=== PATIENT | female | born 1945 | race Caucasian/White ===

== ENCOUNTER 2017-07-04 02:17 | Inpatient (IN) | payer MEDICARE ==
[2017-07-04] MEDS ORDERED: Lorazepam 2 MG/ML VIAL ONE (02:49)
[2017-07-04 03:15] LABS: Hematocrit 38.4 % (36.0-47.0); Mean Platelet Volume 6.6 fL (7.4-10.4); Red Blood Cell (RBC) Count 4.35 mill/uL (4.20-5.40); White Blood Cell (WBC) Count 10.5 thou/uL (4.8-10.8)
[2017-07-04 03:16] LABS: ALT (SGPT) 23 U/L (8-55); AST (SGOT) 24 U/L (5-34); Alkaline Phosphatase 89 U/L (40-150); Anion Gap 9 mmol/L (10-20); BUN (Urea Nitrogen) 15 mg/dL (9.8-20.1); Bilirubin, Total 0.2 mg/dL (0.2-1.2); Calc. Creatinine Clearance 0 mL/min (70-130); Calcium 8.9 mg/dL (7.8-10.44); Carbon Dioxide 32 mmol/L (23-31); Chloride 104 mmol/L (98-107); Estimated GFR-MDRD 48; Globulin 3.5 g/dL (2.4-3.5); Protein, Total 7.1 g/dL (6.0-8.3)
[2017-07-04] MEDS ORDERED: Albuterol Sulfate 2.5 mg/3 ml Neb ONE (03:20)
[2017-07-04 03:31] LABS: Band 10 % (5-11); Neutrophil 53 % (42-75)
[2017-07-04 03:49] LABS: Lactic Acid - Sepsis 0.6 mmol/L (0.5-2.2)
[2017-07-04 04:15] LABS: Troponin I 0.021 ng/mL (< 0.028)
[2017-07-04 04:20] LABS: Bilirubin Negative (Negative); Blood, Urine Trace (Negative); Glucose, Urine (Dipstick) Negative (Negative); Ketone, Urine Negative (Negative); Nitrite Negative (Negative); Protein, Urine (Dipstick) Trace mg/dL (Neg-Trace); Urobilinogen 0.2 mg/dL (0.2-1.0)
[2017-07-04 04:25] LABS: Bacteria/HPF None Seen HPF (None Seen); Hyaline Casts/LPF 4-6 HYALINE CAST LPF (0-3 Hyaline); RBC/HPF 0-3 HPF (0-3); Squamous Epithelial 0-3 HPF (0-3); WBC/HPF 0-3 HPF (0-3)
[2017-07-04 06:37] VITALS: BMI 34.4
[2017-07-04 07:00] LABS: Troponin I 0.016 ng/mL (< 0.028)
[2017-07-04] MEDS ORDERED: Sodium Chloride 0.9% 1,000 ML IV SCH (08:15)
[2017-07-04] MEDS: guaiFENesin ER 600 MG TAB PO SCH ×2 (08:41→20:31)
[2017-07-04] MEDS: Montelukast Sodium 10 mg Tablet PO SCH (08:42)
[2017-07-04] MEDS: Enoxaparin Sodium 100 MG/ML SYRINGE SC SCH ×2 (08:42→20:31)
[2017-07-04] MEDS: Furosemide 40 MG TAB PO SCH (08:42)
[2017-07-04] MEDS: Fluticasone Propionate Nasal Spray 16 gm Bottle NASAL SCH ×2 (09:23→20:31)
[2017-07-04] MEDS: Azithromycin 500 MG in Sodium Chloride 0.9% 250 ML 250 ML IVPB SCH (09:23)
--- NOTE | 2017-07-04 09:31 | RAD ---
SINGLE VIEW OF THE CHEST: COMPARISON: 08/29/16. HISTORY: Shortness of breath and wheezing. FINDINGS: Single view of the chest shows a normal sized cardiomediastinal silhouette. There is no evidence of consolidation, mass, or pleural effusion. The bones are unremarkable. IMPRESSION: No evidence of acute cardiopulmonary disease. POS: [facility]
[2017-07-04 10:04] LABS: Troponin I 0.025 ng/mL (< 0.028)
--- NOTE | 2017-07-04 10:37 | HP ---
DATE OF ADMISISON: 07/04/2017 CHIEF COMPLAINT: Exacerbation of chronic obstructive pulmonary disease with respiratory failure. HISTORY OF PRESENT ILLNESS: The patient is a 72-year-old female with long history of previous hospi talizations for exacerbation of COPD, because she continues to smoke, most recent one was in August of this year where she was treated by Dr. Caldwell. The patient had been coughing more than usual over the last few days prior to arrival at the emergency room where she was acutely dyspneic and req uired placement of BiPAP. On prior to arrival, when EMS picked her up, they began doing DuoNeb deshawn tments and put her on BiPAP, such that by the time she arrived to the emergency room, she was showin g some improvement with BiPAP and no treatments were continued. She continued to improve and finall y Dr. Santo was consulted for [facility] admission due to her need for continued treatment. She denies an y headache, nausea, vomiting, diarrhea, sore throat, or runny nose. There is a component of asthma to her COPD. She has continued to smoke. PAST MEDICAL HISTORY: As mentioned above, multiple episodes of previous hospitalizations for exacer bation of COPD and chronic bronchitis. She also has hypertension, hypothyroidism, GERD, depression, osteopenia. PAST SURGICAL HISTORY: Includes cardiac bypass, cataract in both eyes, hysterectomy, left knee repl acement, and right knee surgery. SOCIAL HISTORY: As mentioned above, continues to smoke and has even smoked with oxygen supplementat ion and has caught her oxygen on shea. FAMILY HISTORY: Noncontributory. 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 CODEINE, PENICIL ELIZA and SULFA. MEDICATIONS ON ADMISSION: Include raloxifene 60 mg daily, Zoloft 100 mg daily, Lasix 40 mg q.a.m., levothyroxine 125 mg daily, Protonix 40 mg daily, Singulair 10 mg daily, Flonase nasal spray 1 puff each nostril b.i.d.; recently Zithromax has been started as an outpatient where she was felt to have bronchitis, 250 daily; diltiazem 30 mg b.i.d., DuoNeb treatments as home nebulizer q.4 hours p.r.n. , Spiriva 18 mcg daily, and Symbicort 160/4.5 two puffs b.i.d. REVIEW OF SYSTEMS: At the time of admission, as previously mentioned was recently seen as an outpat ient and diagnosed with bronchitis and placed on oral Zithromax 250 daily in a Z-KAREEM fashion. Const itutional: Denies fever. General aches and pains. HEENT: Denies discharge, drainage or lesions. Neck: Unremarkable. Chest: With associated cough and shortness of breath. Heart: Denies palpit ations or chest pain. Gastrointestinal: No vomiting, diarrhea. Genitourinary: History of dysuria or frequency. Skin: Without rashes or lesions. Neurologic: No trouble with mentation on areas of anesthesia. Endocrine: Denies swelling or edema or changes with her energy levels. Lymphatic: Denies any edema, swelling, or bruising. Musculosk eletal: Denies any arthritis or joint swelling or pain. PHYSICAL EXAMINAITON: VITAL SIGNS: On admission, blood pressure on arrival was 147/110, pulse 99, respirations 25, pain s daisy 0, O2 sat 98 on BiPAP. GENERAL: This is an elderly female, arousable, responsive. HEENT: Normocephalic and atraumatic. Pupils equal, round, and reactive to light. Extraocular musc les are intact. TMs, nares, pharynx clear with BiPAP in place. NECK: Supple. CHEST: With diminished breath sounds and audible wheezing bilaterally. HEART: Regular rate and rhythm, tachycardic. ABDOMEN: Obese, unable to appreciate organomegaly. /BREAST: Deferred. EXTREMITIES: With 1+ lower extremity edema. SKIN: Without rashes or lesions. NEUROLOGIC: Nonfocal and intact. X-RAY FINDINGS: Chest x-ray shows hyperinflation of both lungs without acute infiltrate. ASSESSMENT: Exacerbation of chronic obstructive pulmonary disease/chronic bronchitis. PLAN: Continue BiPAP until weanable. Continue DuoNeb q.4 hours. Continue Solu-Medrol 40 mg q.6 ho urs. We will continue Zithromax IV. Dr. Serrano will be asked to see the patient who she has seen in the past. We will serially reevaluate the patient, continue her on Singulair and Spiriva. Should there be any other questions, we will address them once they arrive.
[2017-07-04] MEDS: Acetaminophen 325 MG TAB PO PRN ×2 (11:50→20:30)
[2017-07-04] MEDS ORDERED: Acetaminophen 325 MG TAB PO SCH (12:00)
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
[2017-07-04] MEDS: Mometasone/Formoterol 120 PUFF INHALER INH SCH (18:40)
[2017-07-05] MEDS: Levothyroxine Sodium 125 MCG TAB PO SCH (05:22)
[2017-07-05] MEDS: Acetaminophen 325 MG TAB PO PRN ×2 (05:31→20:02)
[2017-07-05 06:16] LABS: #Lymphocytes 1.1 thou/uL (1.20-3.40); #Neutrophils 7.9 thou/uL (1.40-6.50); %Eosinophils 0.1 % (0.0-10.0); %Monocytes 10.4 % (0.0-10.0); Hematocrit 38.2 % (36.0-47.0); Red Blood Cell (RBC) Count 4.28 mill/uL (4.20-5.40)
[2017-07-05 06:30] LABS: Anion Gap 16 mmol/L (10-20); BUN (Urea Nitrogen) 22 mg/dL (9.8-20.1); Calc. Creatinine Clearance 70 mL/min (70-130); Calcium 8.5 mg/dL (7.8-10.44); Carbon Dioxide 28 mmol/L (23-31); Chloride 103 mmol/L (98-107); Estimated GFR-MDRD 53
[2017-07-05] MEDS ORDERED: Sterile Water 10 ML ONE (08:34)
[2017-07-05] MEDS: Furosemide 40 MG TAB PO SCH (08:41)
[2017-07-05] MEDS: Montelukast Sodium 10 mg Tablet PO SCH (08:42)
[2017-07-05] MEDS: guaiFENesin ER 600 MG TAB PO SCH ×2 (08:42→20:02)
[2017-07-05] MEDS: Fluticasone Propionate Nasal Spray 16 gm Bottle NASAL SCH ×2 (08:43→20:02)
[2017-07-05] MEDS: Mometasone/Formoterol 120 PUFF INHALER INH SCH (09:09)
--- NOTE | 2017-07-05 09:25 | RAD ---
CHEST UPRIGHT PORTABLE 1 VIEW: HISTORY: A 72-year-old female with COPD exacerbation. COMPARISON: 07/04/17. FINDINGS: Increased linear and interstitial and other stable-appearing chronic lung changes noted. No conflue nt pneumonia, overt edema, or pleural effusion. Heart size is within normal limits. IMPRESSION: Stable chronic changes. No evidence of pneumonia or other acute process. POS: [facility]
[2017-07-05] MEDS: Azithromycin 500 MG in Sodium Chloride 0.9% 250 ML 250 ML IVPB SCH (10:40)
[2017-07-05] MEDS: methylPREDNISolone Sod Succ/PF 125 MG/2 ML VIAL IVP SCH ×2 (10:42→18:12)
[2017-07-05] MEDS: Enoxaparin Sodium 100 MG/ML SYRINGE SC SCH ×2 (10:45→20:15)
[2017-07-05] MEDS ORDERED: Furosemide 40 MG/4 ML VIAL SLOW IVP SCH (16:30)
--- NOTE | 2017-07-05 18:20 | PRG ---
DATE OF SERVICE:: 07/05/2017 SERVICE: Pulmonary Medicine. INTERVAL HISTORY: The patient is doing okay from a respiratory standpoint. I have respiratory ther apy give her to Ciprianoera. She has absolutely no coordination and is not getting any of this medicatio n. My suspicion is that she is not getting any Symbicort that she is supposed to be getting in the outpatient setting. This morning, she had an episode of difficulty with breathing. She has got ray e frequent nebulized medications and no dose of steroid, once again back off on these medications. She denies any current fevers, chills, nausea or vomiting. She has a cough, but is not bringing up any sputum. PHYSICAL EXAMINATION: VITAL SIGNS: Afebrile, pulse 86, blood pressure 159/88, respirations 16, saturation 91% on 2 liters nasal cannula. GENERAL: Patient is awake, alert, in no apparent distress. LUNGS: Decreased air entry. There is a prolonged expiratory phase. I hear crackles present depend ently. There is also expiratory wheezing present, more on the right. HEART: Normal rate, regular. ABDOMEN: Soft, nontender, nondistended. Bowel sounds positive. MUSCULOSKELETAL: No cyanosis or clubbing. No pitting in the bilateral lower extremities. NEUROLOGIC: Grossly nonfocal. LABORATORY DATA: WBC 10.0, hemoglobin 11.0, platelets 264,000. Basic metabolic profile is unremark able. BNP 167 and up trending. Urinalysis is unremarkable. Blood cultures negative x2. IMAGING: Chest x-ray demonstrates chronic changes. No evidence of acute cardiopulmonary abnormalit ies identified. ASSESSMENT: 1. Asthma with acute exacerbation. 2. Acute on chronic hypoxic respiratory failure. 3. Acute on chronic diastolic heart failure. PLAN: We will provide her with another dose of Lasix. We will continue frequent nebulized medicati ons. Steroids will also be continued. Pulmonary Critical Care will continue to follow while the nicholas villarreal remains in the hospital. I will add some Mucinex to see if it will help her liberate some spu analisa.
[2017-07-06] MEDS: Acetaminophen 325 MG TAB PO PRN (06:03)
[2017-07-06] MEDS: Levothyroxine Sodium 125 MCG TAB PO SCH (06:03)
[2017-07-06] MEDS ORDERED: Milk Of Magnesia 30 ML UDCUP PO SCH (07:45)
[2017-07-06] MEDS ORDERED: predniSONE 20 MG TAB PO SCH (08:00)
[2017-07-06] MEDS: predniSONE 20 MG TAB PO SCH ×2 (08:54→16:02)
[2017-07-06] MEDS: guaiFENesin ER 600 MG TAB PO SCH ×2 (08:54→20:16)
[2017-07-06] MEDS: Furosemide 40 MG TAB PO SCH (08:56)
[2017-07-06] MEDS: Montelukast Sodium 10 mg Tablet PO SCH (08:56)
[2017-07-06] MEDS: Azithromycin 500 MG in Sodium Chloride 0.9% 250 ML 250 ML IVPB SCH (09:22)
[2017-07-06] MEDS: Fluticasone Propionate Nasal Spray 16 gm Bottle NASAL SCH ×2 (09:23→20:17)
[2017-07-06] MEDS: Enoxaparin Sodium 100 MG/ML SYRINGE SC SCH ×2 (09:23→20:17)
[2017-07-06] MEDS: Docusate 100 MG CAP PO SCH ×2 (09:23→20:16)
[2017-07-06] MEDS: Lorazepam 0.5 MG TAB PO PRN ×2 (09:23→16:03)
--- NOTE | 2017-07-06 17:15 | PRG ---
DATE OF SERVICE: 07/06/2017 SERVICE: Pulmonary Medicine. INTERVAL HISTORY: The patient is doing great from a respiratory standpoint. This morning, she feel s like she is breathing comfortably. She denies any current fevers, chills or chest discomfort. Jarett powers continues to cough a little bit, but no longer feels like she has something to get out. Her cough is nonproductive. Otherwise, she seems to be improving to her usual state of health. PHYSICAL EXAMINATION: VITAL SIGNS: Afebrile, pulse 79, blood pressure 112/72, respirations 18 and saturation 94% on 2 lit ers nasal cannula. GENERAL: The patient is awake and alert, in distress. LUNGS: Decreased air entry. Dependent crackles are minimal. I do appreciate prolonged expiratory evident. There is a prolonged expiratory phase, but I do appreciate wheezing or rhonchi. HEART: Normal rate, regular. ABDOMEN: Soft, nontender, nondistended. Bowel sounds positive. MUSCULOSKELETAL: No cyanosis or clubbing. There is no pitting in the bilateral lower extremities. NEUROLOGIC: Grossly nonfocal. IMAGING DATA: Chest x-ray demonstrates stable chronic changes with no evidence of consolidating pne umonia or other acute cardiopulmonary process. There are certainly changes of hyperexpansion bilate ral lung monsivais. ASSESSMENT: 1. Asthma with acute exacerbation. 2. Acute on chronic hypoxic respiratory failure. 3. Acute on chronic diastolic heart failure. PLAN: We will continue to diurese her as tolerated to get her close to euvolemia. For the time ana ng, steroids, antibiotics and nebulized medication will be considered. If she remains stable for e next 24 hours, she can be considered for transition out of the hospital.
[2017-07-07] MEDS: Levothyroxine Sodium 125 MCG TAB PO SCH (05:58)
[2017-07-07] MEDS: Furosemide 40 MG TAB PO SCH (08:45)
[2017-07-07] MEDS: Montelukast Sodium 10 mg Tablet PO SCH (08:45)
[2017-07-07] MEDS: predniSONE 20 MG TAB PO SCH ×2 (08:45→16:06)
[2017-07-07] MEDS: guaiFENesin ER 600 MG TAB PO SCH ×2 (08:45→21:31)
[2017-07-07] MEDS: Docusate 100 MG CAP PO SCH ×2 (08:46→21:31)
[2017-07-07] MEDS: Fluticasone Propionate Nasal Spray 16 gm Bottle NASAL SCH ×2 (08:46→21:33)
[2017-07-07] MEDS: Enoxaparin Sodium 100 MG/ML SYRINGE SC SCH ×2 (08:48→21:32)
--- NOTE | 2017-07-07 08:51 | PRG ---
DATE OF SERVICE: 07/07/2017 SUBJECTIVE: The patient had a good night. She is still short of breath on oxygen. The patient den ies any more complaints. She states she does not want to go back to [facility], but she is going to go live with her aunt and her cousins. I did talk to her about hospice. She became very upset and said she does not want hospice. PHYSICAL EXAMINATION: GENERAL: She is awake, alert, and oriented to person, place, and time. She is on oxygen. VITAL SIGNS: Her blood pressure is 130/90, pulse 70, respirations 24. She is afebrile. NECK: Supple with no increased JVP or carotid bruit. Carotid had good upstroke with no thyromegaly . COR: Regular rate and rhythm. CHEST: Wheezing. ABDOMEN: Soft, nontender with normoactive bowel sounds. There is no bruit or organomegaly. EXTREMITIES: No edema or cyanosis. She had palpable pedal pulses. SKIN: There is no evidence of ulceration lesion, or rash. NEUROLOGIC: She is awake, alert, and oriented to person, place, and time. ASSESSMENT: 1. Chronic obstructive pulmonary disease exacerbation. 2. Anxiety. 3. Gastroesophageal reflux disease. 4. Depression. 5. Allergies. PLAN: The patient will be continued on the same medications for now as she does not have much of a n improvement from yesterday. We will continue the plan. The patient does already have [facility] and wants to continue with [facility] once she goes home.
[2017-07-07] MEDS: Lorazepam 0.5 MG TAB PO PRN ×2 (11:16→21:31)
[2017-07-07] MEDS: Azithromycin 500 MG in Sodium Chloride 0.9% 250 ML 250 ML IVPB SCH (11:17)
[2017-07-07] MEDS ORDERED: Furosemide 40 MG/4 ML VIAL SLOW IVP SCH (17:15)
--- NOTE | 2017-07-07 17:24 | PRG ---
DATE OF SERVICE: 07/07/2017 SERVICE: Pulmonary Medicine. INTERVAL HISTORY: The patient indicates doing fairly well today. She denies any specific fever, ch ills, nausea, vomiting or chest discomfort. She is otherwise returning to her usual state of health . She remains a little bit volume overloaded. Otherwise, there has been no interval change to her condition. She is yet to be too terribly mobile. We are going to work on getting her up today and tomorrow. PHYSICAL EXAMINATION: VITAL SIGNS: Afebrile, pulse 71, blood pressure 129/71, respirations 20, saturation 95% on 2 liters nasal cannula. GENERAL: The patient is awake and alert, no apparent distress. LUNGS: Much improved air entry. She is now wheezing. This is actually a good thing because she is moving enough air to make adventitious sounds. Dependent crackles are appreciated. No rhonchi. HEART: Normal rate, regular. ABDOMEN: Soft, nontender, nondistended. Bowel sounds positive. MUSCULOSKELETAL: No cyanosis or clubbing. No pitting in the bilateral lower extremities. NEUROLOGIC: Grossly nonfocal. ASSESSMENT: 1. Acute on chronic hypoxic respiratory failure. 2. Asthma with acute exacerbation. 3. Acute on chronic diastolic heart failure. PLAN: I will give her another dose of Lasix. We will get her into a chair 3 times a daily and ambu late her frequently. Physical therapy consultation will be placed.
[2017-07-08 04:54] LABS: BUN (Urea Nitrogen) 29 mg/dL (9.8-20.1); Calc. Creatinine Clearance 70 mL/min (70-130); Calcium 8.8 mg/dL (7.8-10.44); Estimated GFR-MDRD 53; Magnesium 2.2 mg/dL (1.6-2.6)
[2017-07-08 05:03] LABS: Anion Gap 14 mmol/L (10-20); Chloride 92 mmol/L (98-107)
[2017-07-08 05:08] LABS: Carbon Dioxide 43 mmol/L (23-31)
[2017-07-08 05:21] LABS: #Lymphocytes 2.6 thou/uL (1.20-3.40); #Monocytes 1.1 thou/uL (0.11-0.59); #Neutrophils 7.3 thou/uL (1.40-6.50); %Basophils 0.4 % (0.0-1.0); %Eosinophils 0.2 % (0.0-10.0); %Lymphocytes 23.2 % (21.0-51.0); %Monocytes 9.9 % (0.0-10.0); Hematocrit 40.4 % (36.0-47.0); Mean Platelet Volume 7.4 fL (7.4-10.4); Red Blood Cell (RBC) Count 4.56 mill/uL (4.20-5.40)
[2017-07-08] MEDS: Levothyroxine Sodium 125 MCG TAB PO SCH (06:13)
[2017-07-08] MEDS: guaiFENesin ER 600 MG TAB PO SCH ×2 (07:35→21:43)
[2017-07-08] MEDS: Montelukast Sodium 10 mg Tablet PO SCH (07:36)
[2017-07-08] MEDS: predniSONE 20 MG TAB PO SCH ×2 (07:39→16:57)
[2017-07-08] MEDS: Docusate 100 MG CAP PO SCH ×2 (07:39→21:43)
[2017-07-08] MEDS: Furosemide 40 MG TAB PO SCH (07:43)
[2017-07-08] MEDS: Fluticasone Propionate Nasal Spray 16 gm Bottle NASAL SCH ×2 (07:43→21:43)
[2017-07-08] MEDS: Enoxaparin Sodium 100 MG/ML SYRINGE SC SCH ×2 (07:46→21:44)
[2017-07-08] MEDS: Azithromycin 500 MG in Sodium Chloride 0.9% 250 ML 250 ML IVPB SCH (14:16)
[2017-07-08] MEDS: Lorazepam 0.5 MG TAB PO PRN (21:44)
[2017-07-09 04:38] LABS: #Lymphocytes 1.8 thou/uL (1.20-3.40); #Monocytes 1.2 thou/uL (0.11-0.59); #Neutrophils 8.6 thou/uL (1.40-6.50); %Basophils 0.1 % (0.0-1.0); %Eosinophils 0.2 % (0.0-10.0); %Lymphocytes 15.5 % (21.0-51.0); %Monocytes 10.5 % (0.0-10.0); Hematocrit 39.6 % (36.0-47.0); Mean Platelet Volume 7.1 fL (7.4-10.4); Red Blood Cell (RBC) Count 4.45 mill/uL (4.20-5.40); White Blood Cell (WBC) Count 11.7 thou/uL (4.8-10.8)
[2017-07-09 04:44] LABS: BUN (Urea Nitrogen) 25 mg/dL (9.8-20.1); Calc. Creatinine Clearance 76 mL/min (70-130); Estimated GFR-MDRD 61; Magnesium 2.5 mg/dL (1.6-2.6)
[2017-07-09 04:52] LABS: Anion Gap 9 mmol/L (10-20); Chloride 94 mmol/L (98-107)
[2017-07-09 05:08] LABS: Carbon Dioxide 43 mmol/L (23-31)
[2017-07-09] MEDS: Levothyroxine Sodium 125 MCG TAB PO SCH (05:43)
[2017-07-09] MEDS: Azithromycin 500 MG in Sodium Chloride 0.9% 250 ML 250 ML IVPB SCH (09:12)
[2017-07-09] MEDS: Enoxaparin Sodium 100 MG/ML SYRINGE SC SCH (09:14)
[2017-07-09] MEDS: Montelukast Sodium 10 mg Tablet PO SCH (09:14)
[2017-07-09] MEDS: predniSONE 20 MG TAB PO SCH ×2 (09:15→17:31)
[2017-07-09] MEDS: Furosemide 40 MG TAB PO SCH (09:15)
[2017-07-09] MEDS: guaiFENesin ER 600 MG TAB PO SCH (09:16)
[2017-07-09] MEDS: Fluticasone Propionate Nasal Spray 16 gm Bottle NASAL SCH (09:17)
[2017-07-09] MEDS: Docusate 100 MG CAP PO SCH (09:17)
[2017-07-09] MEDS: Lorazepam 0.5 MG TAB PO PRN (11:37)
--- NOTE | 2017-07-09 13:03 | PRG ---
DATE OF SERVICE: 07/08/2017 SERVICE: Pulmonary Medicine INTERVAL HISTORY: The patient is doing fine from a respiratory standpoint. She is requiring her neb ulized medications frequently through the day. That being said, she did not hardly need any all nigh t long. She has no specific complaints of fevers, chills, nausea, vomiting or chest discomfort. PHYSICAL EXAMINATION: VITAL SIGNS: Afebrile, pulse 79, blood pressure 111/62, respirations 17, saturation 96% on 2 liters nasal cannula. GENERAL: The patient is awake, alert, in no apparent distress. LUNGS: Decent air entry. There is a prolonged expiratory phase and rhonchi are present, but clear w ith cough. No wheezing or crackles are appreciated. HEART: Normal rate, regular. ABDOMEN: Soft, nontender, nondistended. Bowel sounds positive. MUSCULOSKELETAL: No cyanosis or clubbing. No pitting in the bilateral lower extremities. NEUROLOGIC: Grossly nonfocal. LABORATORY DATA: WBC 11.0, hemoglobin 11.8. Platelets 321,000. Bicarbonate 43. Basic metabolic pr ofile is essentially unremarkable otherwise. Magnesium is normal. Blood cultures x2 are negative. ASSESSMENT: 1. Acute on chronic hypoxic respiratory failure. 2. Asthma with acute exacerbation. 3. Acute on chronic diastolic heart failure. PLAN: We will continue to provide her with support including steroids, nebulized medications, and an tibiotics. Steroids should be able to be discontinued after total duration of 10 days. Antibiotics can be stopped after 7 days. I will continue working on mobilizing the patient. I do believe that a lot of this admission is more about the patient's weakness and debility instead of acute lung issues , particularly over the last [address]. [address], I will continue to follow while she remains in hous e, but she is in this condition tomorrow morning, from my perspective, she will be medically stable f or transition home from a purely respiratory perspective.
--- NOTE | 2017-07-09 16:27 | DIS ---
FINAL DIAGNOSES: 1. Chronic obstructive pulmonary disease. 2. Anxiety. 3. Constipation. 4. Gastroesophageal reflux disease. 5. Hypothyroidism. COMPLICATIONS: None. PROCEDURES: None. CONSULTANTS: None. HOSPITAL COURSE: This is a pleasant female, who presented from [facility] with breathing difficulty. She is known to have COPD and on oxygen. The patient had a chest x-ray, which showed no evidence of known pneumonia. Her medication was adjusted accordingly. She was placed on steroids. Her CBC was normal. She did have a spike in her white blood cell to 11.0, but that was related to the steroids. Her CMP was okay except for CO2 being elevated at 43. Her BUN and creatinine were okay. Her BNP w as slightly elevated at 167.4. The patient began breathing much better. Her IV steroids were change d to p.o. steroids. She did not want to go back to [facility], but she wanted to go home with home he alth, and she would be living with family. The patient did refuse hospice as well. The patient was also encouraged to stop smoking as she still smokes. DIET: She was discharged home on regular diet. ACTIVITIES: As tolerated by the patient. DISCHARGE MEDICATIONS: 1. Symbicort 160/4.5 one inhaler every 4 hours. 2. Flonase 1 spray each nostril every day. 3. Cardizem 30 mg t.i.d. 4. Furosemide 40 mg daily. 5. DuoNeb 3 mL every 4 hours p.r.n. 6. Levothyroxine 125 mcg every day. 7. Singulair 10 mg every day. 8. Protonix 20 mg every day. 9. Potassium 10 mEq every day. 10. Evista 60 mg every day. 11. Sertraline 100 mg every day. 12. Spiriva 1 cap daily. 13. Colace 100 mg b.i.d. 14. Medrol Dosepak. FOLLOWUP: She will follow up with Shanita in 1 week or prior to that if she has any complications. The patient verbalized understanding and all questions answered to her satisfaction. VIRY Ca dictating for Larry Santo M.D
[2017-07-09 17:35] VITALS: BP 105/58
[2017-07-09 17:36] VITALS: TEMP 97.8
--- NOTE | 2017-07-09 18:35 | PRG ---
DATE OF SERVICE: 07/09/2017 SERVICE: Pulmonary Medicine. INTERVAL HISTORY: The patient is doing okay from a respiratory standpoint. She is breathing very co mfortably. She was able to get out of bed into the bedside commode without any assistance. From her perspective, she is strong enough to go home. Her breathing is certainly back to baseline. Every w ants to walk, she gets heaviness that comes and goes on her chest. This is not actually associated w ith exertion. PHYSICAL EXAMINATION: VITAL SIGNS: Afebrile, pulse 90, blood pressure 105/58, respirations 18, saturation 92% on room air. GENERAL: Patient is awake, alert, no apparent distress. LUNGS: Decreased air entry. There is prolonged expiratory phase. I hear some expiratory wheezing a nteriorly. Posteriorly, there are minimal crackles. There are also some expiratory rhonchi that kenneth ar with cough. HEART: Normal rate, regular. ABDOMEN: Soft, nontender, nondistended. Bowel sounds positive. MUSCULOSKELETAL: No cyanosis or clubbing. No pitting in the bilateral lower extremities. NEUROLOGIC: Grossly nonfocal. LABORATORY DATA: WBC 11.7, hemoglobin 11.3, platelets 309,000. Bicarbonate 43. Basic metabolic pro file is otherwise unremarkable. Magnesium is normal. Urinalysis is unremarkable. Blood cultures x2 are negative. ASSESSMENT: 1. Acute on chronic hypoxic respiratory failure. 2. Asthma with acute exacerbation. 3. Acute on chronic diastolic heart failure. PLAN: From [facility] respiratory perspective, the patient is stable for transition out of the [facility]. She may be well served by visiting with Cardiology in the outpatient setting to make it certain that she does not have any common heart disease contributing to her presentation. Antibiotics can b e discontinued after a total duration of 7 days. Steroids can be stopped after 10 days. Pulmonary w ill continue to follow while she remains in-house. She is suggested to me that she is not really int erested in following up with me in the outpatient setting. That being said, I have asked to look me up if she would like to establish with a lung doctor.
== END 2017-07-09 17:56 | disposition home health service (06) | DRG 190 ==
LOC: ERS 02:17 → IMCU/EMU 05:58 → T4-B 16:48
PROVIDERS: ADMIT Specialist; ATTEND Specialist
PROC: 5A09357 Assistance with Respiratory Ventilation, Less than 24 Consecutive Hours, Continuous Positive Airway Pressure (ICD-10-PCS; principal; 2017-07-04)
DX: J44.1 Chronic obstructive pulmonary disease with (acute) exacerbation (principal); J96.21 Acute and chronic respiratory failure with hypoxia; I50.33 Acute on chronic diastolic (congestive) heart failure; F17.210 Nicotine dependence, cigarettes, uncomplicated; Z99.81 Dependence on supplemental oxygen; I11.0 Hypertensive heart disease with heart failure; E03.9 Hypothyroidism, unspecified; K21.9 Gastro-esophageal reflux disease without esophagitis; F32.9 Major depressive disorder, single episode, unspecified; F41.9 Anxiety disorder, unspecified; I25.10 Atherosclerotic heart disease of native coronary artery without angina pectoris; Z95.1 Presence of aortocoronary bypass graft; M85.80 Other specified disorders of bone density and structure, unspecified site; K59.00 Constipation, unspecified; Z88.1 Allergy status to other antibiotic agents; Z88.5 Allergy status to narcotic agent; Z88.0 Allergy status to penicillin; Z88.2 Allergy status to sulfonamides; Z96.652 Presence of left artificial knee joint
CPT/HCPCS: 36415; 51701; 71010; 80048; 80053; 81003; 81015; 83605; 83735; 83880; 84484; 85025; 87040; 93005; 94640; 94644; 94660; 94664; 96374; A4216; A4353; J0456; J1650; J1940; J2060; J2920; J2930; J7050; J7506; J7611; J7620

== ENCOUNTER 2017-10-06 13:33 | Inpatient (IN) | payer MEDICARE ==
[2017-10-06] MEDS ORDERED: Albuterol Sulfate 2.5 mg/0.5 ml Neb ONE ×2 (13:56)
[2017-10-06 14:00] LABS: #Basophils 0.1 thou/uL (0.0-0.2); #Eosinphils 0.2 thou/uL (0.0-0.7); #Lymphocytes 1.6 thou/uL (1.20-3.40); #Monocytes 0.9 thou/uL (0.11-0.59); %Basophils 0.8 % (0.0-1.0); %Eosinophils 1.4 % (0.0-10.0); %Lymphocytes 14.8 % (21.0-51.0); %Monocytes 8.5 % (0.0-10.0); %Neutrophils 74.5 % (42.0-75.0); Hemoglobin 11.5 g/dL (12.0-16.0); Mean Corpuscular HGB CONC 29.8 g/dL (32.0-36.0); Mean Corpuscular Hemoglobin 27.3 pg (27.0-31.0); Mean Corpuscular Volume 91.7 fl (81.0-99.0); Mean Platelet Volume 7.4 fL (7.4-10.4); Platelet Count 267 thou/uL (130-400); RBC Distribution Width 15.5 % (11.5-14.5); Red Blood Cell (RBC) Count 4.22 mill/uL (4.20-5.40); White Blood Cell (WBC) Count 10.7 thou/uL (4.8-10.8)
[2017-10-06] MEDS ORDERED: Magnesium 2 GM/NS 0.9% 100 ML 2 GM in Premix Bag 1 BAG IVPB SCH (14:00)
[2017-10-06] MEDS ORDERED: Dexamethasone 10 MG/ML VIAL ONE (14:03)
[2017-10-06] MEDS ORDERED: Magnesium Sulfate 2 GM/100 ML BAG ONE (14:03)
[2017-10-06 14:09] LABS: Base Excess (BEa) 10.4 mEq/L (0 (+/-) 2.5); CO2 Tension 98.6 mmHg (35.0-45.0); O2 Tension (PaO2) 97.2 mmHg (80.0-100.0); pH, Arterial 7.24 (7.35-7.45)
[2017-10-06 14:10] LABS: Analyzer IN Cardio ER; Calcium, Ionized 1.2 mmol/L (1.12-1.30); Puncture Site LRA
[2017-10-06 14:15] LABS: Anisocytosis SLIGHT = 6-15 cells (100X) (0-5/hpf); Hypochromia SLIGHT = 6-15 cells (100X) (0-5/hpf); MDiff Complete? YES; PLT Morphology Comment Appears Adequate; Polychromasia SLIGHT = 2-3 cells (100X) (0-2/hpf); Stomatocytes SLIGHT = 2-5 cells (100X) (0-1/hpf); Target Cells SLIGHT = 2-5 cells (100X) (0-1/hpf)
[2017-10-06 14:20] LABS: Troponin I 0.034 ng/mL (< 0.028)
--- NOTE | 2017-10-06 14:25 | RAD ---
CHEST ONE VIEW: History: Dyspnea. Shortness of breath times 2 weeks. Comparison: 07-05-17 FINDINGS: Atherosclerosis of the aorta. Upper normal cardiac silhouette. The pulmonary vessels and hilum are no rmal. Costophrenic angles are clear. Hyperinflation with stable emphysematous changes. No pneumothora x or osseous abnormalities. IMPRESSION: 1. Hyperinflation. Stable emphysematous changes. 2. Atherosclerosis. POS: [facility]
[2017-10-06 14:34] LABS: INR-International Normal Ratio 0.9; PTT 25.5 SEC (22.9-36.1); Prothrombin Time 12.5 SEC (12.0-14.7)
[2017-10-06 14:52] LABS: ALT (SGPT) 11 U/L (8-55); AST (SGOT) 16 U/L (5-34); Albumin 3.8 g/dL (3.4-4.8); Alkaline Phosphatase 83 U/L (40-150); BUN (Urea Nitrogen) 13 mg/dL (9.8-20.1); Bilirubin, Total 0.3 mg/dL (0.2-1.2); CK (CPK) 59 U/L (29-168); Calc. Creatinine Clearance 0 mL/min (70-130); Estimated GFR-MDRD 58; Globulin 3.1 g/dL (2.4-3.5); Glucose 114 mg/dL (83-110); Lipase 6 U/L (8-78); Protein, Total 6.9 g/dL (6.0-8.3)
[2017-10-06 15:02] LABS: Anion Gap 14 mmol/L (10-20); Carbon Dioxide 34 mmol/L (23-31); Chloride 100 mmol/L (98-107); Potassium 4.5 mmol/L (3.5-5.1); Sodium 143 mmol/L (136-145)
[2017-10-06 15:57] LABS: Bilirubin Negative (Negative); Blood, Urine Negative (Negative); Clarity CLEAR (Clear); Glucose, Urine (Dipstick) Negative (Negative); Leukocyte Negative (Negative); Nitrite Negative (Negative); Protein, Urine (Dipstick) Negative (Neg-Trace); Urobilinogen 0.2 mg/dL (0.2-1.0)
[2017-10-06] MEDS ORDERED: Ondansetron HCl/PF 4 MG/2 ML Vial IVP PRN (16:23)
[2017-10-06] MEDS ORDERED: Ondansetron ODT 4 MG TAB SL PRN (16:23)
[2017-10-06] MEDS ORDERED: Dextrose 5 %-0.45 % NaCl 1,000 ML IV SCH (16:30)
[2017-10-06 16:41] VITALS: BMI 37.9
[2017-10-06 17:25] LABS: Troponin I 0.031 ng/mL (< 0.028)
[2017-10-06] MEDS ORDERED: Ondansetron HCl/PF 4 MG/2 ML Vial SLOW IVP PRN (19:15)
[2017-10-06] MEDS ORDERED: Acetaminophen 325 MG TAB PO PRN (19:15)
[2017-10-06 20:26] LABS: Troponin I 0.018 ng/mL (< 0.028)
[2017-10-06] MEDS: Montelukast Sodium 10 mg Tablet PO SCH (20:48)
[2017-10-06] MEDS: Sodium Chloride 0.45% 1,000 ML IV SCH (20:50)
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
[2017-10-07 04:39] LABS: #Lymphocytes 0.5 thou/uL (1.20-3.40); #Monocytes 0.1 thou/uL (0.11-0.59); #Neutrophils 7.1 thou/uL (1.40-6.50); %Basophils 0.1 % (0.0-1.0); %Lymphocytes 6.8 % (21.0-51.0); %Neutrophils 92.1 % (42.0-75.0); Hemoglobin 10.7 g/dL (12.0-16.0); Mean Corpuscular HGB CONC 29.1 g/dL (32.0-36.0); Mean Corpuscular Hemoglobin 26.7 pg (27.0-31.0); Mean Corpuscular Volume 91.7 fl (81.0-99.0); Platelet Count 249 thou/uL (130-400); RBC Distribution Width 15.1 % (11.5-14.5); Red Blood Cell (RBC) Count 4.02 mill/uL (4.20-5.40); White Blood Cell (WBC) Count 7.7 thou/uL (4.8-10.8)
[2017-10-07 04:58] LABS: Anion Gap 11 mmol/L (10-20); BUN (Urea Nitrogen) 13 mg/dL (9.8-20.1); Calc. Creatinine Clearance 84 mL/min (70-130); Calcium 8.7 mg/dL (7.8-10.44); Carbon Dioxide 34 mmol/L (23-31); Chloride 99 mmol/L (98-107); Estimated GFR-MDRD 61; Glucose 135 mg/dL (83-110); Magnesium 2.7 mg/dL (1.6-2.6); Potassium 5.1 mmol/L (3.5-5.1); Sodium 139 mmol/L (136-145)
[2017-10-07] MEDS: Budesonide 0.5 MG/2 ML NEB NEB SCH ×2 (05:34→18:32)
[2017-10-07] MEDS: Levothyroxine Sodium 125 MCG TAB PO SCH (07:03)
[2017-10-07] MEDS: Furosemide 40 MG TAB PO SCH (08:35)
[2017-10-07] MEDS: Potassium Chloride 20 MEQ TAB PO SCH (08:35)
[2017-10-07] MEDS: Sodium Chloride 0.45% 1,000 ML IV SCH (08:38)
[2017-10-07] MEDS ORDERED: predniSONE 20 MG TAB PO SCH (10:15)
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
[2017-10-07] MEDS ORDERED: Furosemide 40 MG/4 ML VIAL SLOW IVP SCH (14:00)
[2017-10-07] MEDS: Montelukast Sodium 10 mg Tablet PO SCH (21:18)
[2017-10-07] MEDS ORDERED: diphenhydrAMINE 25 MG CAP PO PRN (22:10)
[2017-10-08 05:26] LABS: BUN (Urea Nitrogen) 24 mg/dL (9.8-20.1); Calc. Creatinine Clearance 81 mL/min (70-130); Calcium 8.6 mg/dL (7.8-10.44); Estimated GFR-MDRD 58; Glucose 102 mg/dL (83-110)
[2017-10-08 05:27] LABS: #Lymphocytes 1.3 thou/uL (1.20-3.40); #Monocytes 1.2 thou/uL (0.11-0.59); #Neutrophils 11.9 thou/uL (1.40-6.50); %Basophils 0.1 % (0.0-1.0); %Eosinophils 0.1 % (0.0-10.0); %Lymphocytes 8.9 % (21.0-51.0); %Monocytes 8.4 % (0.0-10.0); %Neutrophils 82.6 % (42.0-75.0); Hemoglobin 10.3 g/dL (12.0-16.0); Mean Corpuscular HGB CONC 29.1 g/dL (32.0-36.0); Mean Corpuscular Hemoglobin 26.5 pg (27.0-31.0); Mean Corpuscular Volume 91.2 fl (81.0-99.0); Mean Platelet Volume 7.2 fL (7.4-10.4); Platelet Count 258 thou/uL (130-400); RBC Distribution Width 15.3 % (11.5-14.5); Red Blood Cell (RBC) Count 3.88 mill/uL (4.20-5.40); White Blood Cell (WBC) Count 14.4 thou/uL (4.8-10.8)
[2017-10-08 05:34] LABS: Chloride 98 mmol/L (98-107); Potassium 4.6 mmol/L (3.5-5.1); Sodium 141 mmol/L (136-145)
[2017-10-08] MEDS: Levothyroxine Sodium 125 MCG TAB PO SCH (05:40)
[2017-10-08 06:04] LABS: Carbon Dioxide 37 mmol/L (23-31)
[2017-10-08 06:11] LABS: Anion Gap 11 mmol/L (10-20)
[2017-10-08] MEDS: Budesonide 0.5 MG/2 ML NEB NEB SCH ×2 (06:51→18:55)
--- NOTE | 2017-10-08 07:55 | RAD ---
SINGLE VIEW OF THE CHEST: COMPARISON: 10/06/17. HISTORY: COPD exacerbation. FINDINGS: A single view of the chest shows an enlarged but stable cardiomediastinal silhouette. Increased inte rstitial lung markings are seen. There is possibly a superimposed airspace opacity in the left lower lobe. No pleural effusion is seen. IMPRESSION: Possible early left lower lobe infiltrate. POS: OFF
[2017-10-08] MEDS: Potassium Chloride 20 MEQ TAB PO SCH (09:38)
[2017-10-08] MEDS: Furosemide 40 MG TAB PO SCH (09:38)
[2017-10-08] MEDS: predniSONE 20 MG TAB PO SCH (09:38)
[2017-10-08] MEDS: Amlodipine 5 MG TAB PO SCH (09:39)
--- NOTE | 2017-10-08 12:18 | PRG ---
DATE OF SERVICE: 10/08/2017 SUBJECTIVE: The patient is still short of breath. She does not feel good. She still has audible wh eezing. PHYSICAL EXAMINATION: GENERAL: Upon evaluation, she is awake, alert, and oriented. VITAL SIGNS: Her blood pressure is 150/70, pulse 84, respirations 24. She is afebrile. NECK: Supple with no increased JVP or carotid bruit. Carotid had good upstroke with no thyromegaly. COR: Regular rate and rhythm. CHEST: Scattered wheezing. ABDOMEN: Soft, nontender with normoactive bowel sounds. No bruit or organomegaly. EXTREMITIES: No edema or cyanosis. She had palpable pedal pulses. SKIN: There is no evidence of ulceration, lesion, or rash. NEUROLOGIC: She is awake, alert, and oriented to person, place, and time. ASSESSMENT: 1. Chronic obstructive pulmonary disease exacerbation. 2. Hypertension. PLAN: The patient will be started on Norvasc 5 mg every day. We will also continue IV steroids. Th e patient is not yet ready to go home. This is VIRY Ca dictating for Dr. Larry Santo.
[2017-10-08] MEDS: Montelukast Sodium 10 mg Tablet PO SCH (21:12)
[2017-10-09 06:15] LABS: #Basophils 0.1 thou/uL (0.0-0.2); #Eosinphils 0.1 thou/uL (0.0-0.7); #Lymphocytes 2.5 thou/uL (1.20-3.40); #Monocytes 1.7 thou/uL (0.11-0.59); #Neutrophils 8.6 thou/uL (1.40-6.50); %Basophils 0.4 % (0.0-1.0); %Eosinophils 0.5 % (0.0-10.0); %Lymphocytes 19.6 % (21.0-51.0); %Monocytes 12.8 % (0.0-10.0); %Neutrophils 66.7 % (42.0-75.0); ALT (SGPT) 16 U/L (8-55); AST (SGOT) 17 U/L (5-34); Albumin 3.4 g/dL (3.4-4.8); Alkaline Phosphatase 82 U/L (40-150); BUN (Urea Nitrogen) 31 mg/dL (9.8-20.1); Bilirubin, Total 0.2 mg/dL (0.2-1.2); Calc. Creatinine Clearance 76 mL/min (70-130); Calcium 8.7 mg/dL (7.8-10.44); Estimated GFR-MDRD 54; Globulin 2.7 g/dL (2.4-3.5); Glucose 77 mg/dL (83-110); Hemoglobin 10.8 g/dL (12.0-16.0); Hypochromia SLIGHT = 6-15 cells (100X) (0-5/hpf); MDiff Complete? YES; Mean Corpuscular HGB CONC 28.8 g/dL (32.0-36.0); Mean Corpuscular Hemoglobin 26.4 pg (27.0-31.0); Mean Corpuscular Volume 91.7 fl (81.0-99.0); Mean Platelet Volume 7.2 fL (7.4-10.4); Platelet Count 266 thou/uL (130-400); Protein, Total 6.1 g/dL (6.0-8.3); RBC Distribution Width 15.4 % (11.5-14.5); Red Blood Cell (RBC) Count 4.08 mill/uL (4.20-5.40); White Blood Cell (WBC) Count 12.9 thou/uL (4.8-10.8)
[2017-10-09 06:35] LABS: Chloride 98 mmol/L (98-107); Potassium 4.3 mmol/L (3.5-5.1); Sodium 143 mmol/L (136-145)
[2017-10-09] MEDS: Levothyroxine Sodium 125 MCG TAB PO SCH (06:37)
[2017-10-09] MEDS: Budesonide 0.5 MG/2 ML NEB NEB SCH (06:51)
[2017-10-09 07:47] LABS: Carbon Dioxide 35 mmol/L (23-31)
[2017-10-09 07:48] LABS: Anion Gap 14 mmol/L (10-20)
[2017-10-09] MEDS: Amlodipine 5 MG TAB PO SCH (07:56)
[2017-10-09] MEDS: Furosemide 40 MG TAB PO SCH (07:56)
[2017-10-09] MEDS: predniSONE 20 MG TAB PO SCH (07:57)
[2017-10-09] MEDS: Potassium Chloride 20 MEQ TAB PO SCH (07:57)
[2017-10-09 08:28] VITALS: TEMP 98.1
--- NOTE | 2017-10-09 09:27 | PRG ---
DATE OF SERVICE: 10/08/2017 SERVICE: Pulmonary Medicine INTERVAL HISTORY: The patient is doing great from a respiratory standpoint. She denies any current fevers, chills, nausea or vomiting. She tells me that she is essentially back to baseline as far as breathing goes. She is otherwise in her usual state of health and has no specific complaints. PHYSICAL EXAMINATION: VITAL SIGNS: Afebrile, pulse 78, blood pressure 155/72, respirations 16, saturation 99% on 3 liters nasal cannula. GENERAL: The patient is awake, alert, in no apparent distress. LUNGS: Decent air entry. There is a prolonged expiratory phase. Wheezing and rhonchi are both pres ent. Rhonchi cleared with cough. HEART: Normal rate, regular. ABDOMEN: Soft, nontender, nondistended. Bowel sounds positive. MUSCULOSKELETAL: No cyanosis or clubbing. There is no pitting in the bilateral lower extremities. NEUROLOGIC: Nonfocal. LABORATORY: WBC 14.4, hemoglobin 10.3, platelets 258,000. Basic metabolic profile is otherwise unre markable. ASSESSMENT: 1. Acute on chronic hypoxic and hypercapnic respiratory failure. 2. Chronic obstructive pulmonary disease versus asthma with acute exacerbation. 3. Acute on chronic diastolic heart failure. PLAN: We will continue supportive care including antibiotics, nebulizer medications and steroids. I have assessed the patient and will be ordering volume ventilation for nocturnal and as needed daytim e use for symptom management of chronic respiratory failure. Traditional home BiPAP is insufficient due to the severity of the patient's disease process. COPD is a major contributing factor to the say gabriel's chronic respiratory failure. She will initiate this in the outpatient setting and I will get it downloaded off of her device with follow up in 2 months in my clinic. If she is doing well in the morning, she can be considered for transition home.
--- NOTE | 2017-10-09 10:10 | RAD ---
CHEST 2 VIEWS: HISTORY: Dyspnea. COMPARISON: 10/08/17. FINDINGS: Cardiac silhouette is upper limits of normal in size. Pulmonary vasculature is unremarkable. Medias tinum is midline with aortic calcification. There is no lobar consolidation or evidence of pneumotho rax. Subtle opacity at the left base on the frontal view is less pronounced on the current exam, [facility] there is linear opacity at this level on the lateral view with the appearance of atelectasis in the left anterior lateral lung base. No pleural fluid, lobar consolidation, or pneumothorax are anselmo arent. IMPRESSION: 1. Mild linear atelectasis left lung base. 2. Atherosclerosis. POS: [facility]
[2017-10-09 11:23] VITALS: BP 168/84
--- NOTE | 2017-10-10 23:10 | DIS ---
DATE OF ADMISSION: 10/06/2017 DATE OF DISCHARGE: 10/09/2017 CHIEF COMPLAINT: At the time of admission with shortness of breath. HOSPITAL COURSE: History and physical have previously been dictated, I will resume from there with h ospital course. Patient was placed in an IMCU bed, where q.4 hour neb treatments can be performed. Serial troponins included to rule out cardiac DC. IV steroids were initiated as well as pulmonary co nsultation. Over the next 24 hours, the patient showed a significant improvement with much more aler tness, conversiveness, but still was very dyspneic anytime she would attempt to leave the bed. Then, plan of care was continued over the next [address] Cash saw the patient in consultation on 0 10/07/2017, and plan to deescalate the patient's steroids due to lack of overt infection. Antibiotics were discontinued as well. He also decided to give her one dose of Lasix, to see if some mild diure sis will help her situation. He felt that she would benefit also from a home ventilator over the nex t 24 hours. By 10/08/2017, she was still short of breath, did not feel good, and audible wheezing. She was started on Norvasc 5 for her hypertension with IV steroids were continued as well. By 10/09, she was doing much better, able to converse without dyspnea, able to move about the room, and actual ly in the bar without significant dyspnea and has had reached her baseline of COPD and was able to b e discharged home. DISCHARGE DIAGNOSES: Acute on chronic hypoxic and hypercapnic respiratory failure, chronic obstructi ve pulmonary disease with a component possibly of asthma, acute on chronic diastolic heart failure. DISCHARGE MEDICATIONS: Include pantoprazole, amlodipine 10 mg daily, Pulmicort 0.5 to be nebulized b .i.d., and prednisone diminishing scale 20 mg b.i.d. for 3 days then daily for 4 days. PLAN: She is to follow up with Dr. Santo in 1 week. Home ventilator therapy will be pursued as well as follow up with Dr. Cash and Dr. Payton for further management. She is discharged in stable condition. The time required to review her medical records, examined her thoroughly prior to discharge counseled her completely, and answered all her questions, then proceed to dictation and writing new prescripti ons was 40 minutes.
--- NOTE | 2017-10-14 18:26 | PQF ---
VERONICA MEJIAS MICHAEL E MD [id number] CLINICAL DOCUMENTATION CLARIFICATION FORM: POST DISCHARGE Addendum to original discharge summary date: ____ Late entry note date: __ DATE: 10/14/17 ATTN: Dr. Santo Please exercise your independent, professional judgment in responding to the clarification form. Clinical indicators are provided on the bottom of this form for your review Diagnosis: Acute respiratory failure Present on Admission (POA): [ x] Yes [ ] No [ ] Unable to determine Coding guidelines require hospitals to identify whether a diagnosis was present on admission (POA) or not. To accurately assign the appropriate POA indicator, this information must be clearly documented within the medical record. CLINICAL INDICATORS - SIGNS / SYMPTOMS / LABS Decreased oxygen saturation, Cyanosis/Hypoxia Labored or rapid respirations (use of accessory muscles or inability to speak full sentences, air hunger) Pulmonary vascular congestion RISK FACTORS: History of home O2 use COPD exacerbation / Asthma CHF exacerbation Tobacco abuse TREATMENT: Oxygen, Nebs, Lasix MTDD
--- NOTE | 2017-10-17 17:46 | EKG ---
Test Reason : SOB Blood Pressure : / mmHG Vent. Rate : 086 BPM Atrial Rate : 086 BPM P-R Int : 138 ms QRS Dur : 096 ms QT Int : 404 ms P-R-T Axes : 057 -72 082 degrees QTc Int : 483 ms Sinus rhythm with Premature atrial complexes Left axis deviation Prolonged QT Abnormal ECG Confirmed by VIANEY FORTE, GRISELDA ([id number]), news assignment editor COMPA HERNANDEZ ([id number]) on 10/17/2017 5:45:49 PM Referred By: Confirmed By:GRISELDA WINTERS MD
== END 2017-10-09 14:54 | disposition home health service (06) | DRG 190 ==
LOC: ERS 13:33 → IMCU/EMU 14:42 → T4-B 10-07 16:35
PROVIDERS: ADMIT Specialist; ATTEND Specialist
PROC: 5A09357 Assistance with Respiratory Ventilation, Less than 24 Consecutive Hours, Continuous Positive Airway Pressure (ICD-10-PCS; principal; 2017-10-06)
DX: J44.1 Chronic obstructive pulmonary disease with (acute) exacerbation (principal); J96.21 Acute and chronic respiratory failure with hypoxia; I50.33 Acute on chronic diastolic (congestive) heart failure; E87.2 Acidosis; I24.8 Other forms of acute ischemic heart disease; E03.9 Hypothyroidism, unspecified; F17.210 Nicotine dependence, cigarettes, uncomplicated; I25.10 Atherosclerotic heart disease of native coronary artery without angina pectoris; K21.9 Gastro-esophageal reflux disease without esophagitis; F32.9 Major depressive disorder, single episode, unspecified; Z95.1 Presence of aortocoronary bypass graft; I11.0 Hypertensive heart disease with heart failure
CPT/HCPCS: 36415; 51701; 71045; 71046; 80048; 80053; 81003; 82550; 82553; 82805; 83605; 83690; 83735; 83880; 84484; 85025; 85610; 85730; 87040; 87804; 93005; 94644; 94660; 96365; 96367; 96375; A4216; A4353; G8978-GP-CI; G8979-GP-CI; J1100; J1956; J3475; J7050; J7506; J7611; J7620; J7626

== ENCOUNTER 2017-10-16 11:43 | Inpatient (IN) | payer MEDICARE, OTHER ==
[2017-10-16 12:24] LABS: Hemoglobin 12.2 g/dL (12.0-16.0); Mean Corpuscular HGB CONC 29.3 g/dL (32.0-36.0); Mean Corpuscular Hemoglobin 26.9 pg (27.0-31.0); Mean Corpuscular Volume 91.6 fl (81.0-99.0); Mean Platelet Volume 7.7 fL (7.4-10.4); Platelet Count 268 thou/uL (130-400); RBC Distribution Width 15.2 % (11.5-14.5); Red Blood Cell (RBC) Count 4.54 mill/uL (4.20-5.40); White Blood Cell (WBC) Count 19.5 thou/uL (4.8-10.8)
[2017-10-16 12:39] LABS: ALT (SGPT) 21 U/L (8-55); AST (SGOT) 26 U/L (5-34); Albumin 3.9 g/dL (3.4-4.8); Alkaline Phosphatase 84 U/L (40-150); Anion Gap 11 mmol/L (10-20); BUN (Urea Nitrogen) 26 mg/dL (9.8-20.1); Bilirubin, Total 0.4 mg/dL (0.2-1.2); Calc. Creatinine Clearance 0 mL/min (70-130); Carbon Dioxide 33 mmol/L (23-31); Chloride 99 mmol/L (98-107); Estimated GFR-MDRD 36; Globulin 3.2 g/dL (2.4-3.5); Glucose 159 mg/dL (83-110); Potassium 4.3 mmol/L (3.5-5.1); Protein, Total 7.1 g/dL (6.0-8.3); Sodium 139 mmol/L (136-145)
[2017-10-16 12:42] LABS: Band 6 % (5-11); Lymphocytes 4 % (21-51); MDiff Complete? YES; Metamyelocyte 5 % (0-0); Monocytes 4 % (0-10); Neutrophil 76 % (42-75); Ovalocytes SLIGHT = 2-5 cells (100X) (0-1/hpf); Reactive Lymphocytes 5 % (0-10)
[2017-10-16 12:43] LABS: CKMB 2.2 ng/mL (0-6.6); Troponin I 0.052 ng/mL (< 0.028)
[2017-10-16 13:02] LABS: CO2 Tension 93.9 mmHg (35.0-45.0); O2 Tension (PaO2) 55.4 mmHg (80.0-100.0); pH, Arterial 7.21 (7.35-7.45)
[2017-10-16 13:03] LABS: Actual Bicarbonate (HCO3a) 36.3 mEq/L (22-26); Base Excess (BEa) 5.6 mEq/L (0 (+/-) 2.5); Hematocrit-ABG 44.8 % (36.0-47.0); Hemoglobin (Hb) 11.8 g/dL (12.0-16.0)
[2017-10-16 13:04] LABS: ALV-art Gradient 39.625 (0-20); Analyzer IN Cardio ER; Calcium, Ionized 1.1 mmol/L (1.12-1.30); Puncture Site RR
--- NOTE | 2017-10-16 13:06 | RAD ---
[facility] UPRIGHT FRONTAL RADIOGRAPH CHEST: 10/16/2017 HISTORY: Shortness of breath. COMPARISON: 10/08/2017 FINDINGS: Heart and mediastinal contours are stable. There is mild increased linear interstitial density, stab le as well. There is no pneumothorax, pleural fluid, focal consolidation, or alveolar edema. IMPRESSION: No acute findings. POS: [facility]
[2017-10-16] MEDS ORDERED: Albuterol Sulfate 2.5 mg/3 ml Neb ONE (13:07)
[2017-10-16] MEDS ORDERED: CCU Electrolyte Replacement 1 EACH FS ONE (14:29)
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
[2017-10-16] MEDS ORDERED: Potassium Chloride 40 MEQ in Premix Bag 1 BAG IVPB PRN (15:41)
[2017-10-16] MEDS ORDERED: Potassium Phosphate 15 MMOL in Sodium Chloride 0.9% 250 ML 250 ML IV PRN (15:41)
[2017-10-16] MEDS ORDERED: Potassium Chloride 20 MEQ TAB PO PRN (15:41)
[2017-10-16] MEDS ORDERED: Magnesium Oxide 400 MG TAB PO PRN ×2 (15:41)
[2017-10-16] MEDS ORDERED: Potassium Phosphate 9 MMOL in Sodium Chloride 0.9% 100 ML IVPB PRN (15:41)
[2017-10-16] MEDS ORDERED: CCU ELECTROLYTE REPLACEMENT PROTOCOL FS PRN (15:41)
[2017-10-16] MEDS ORDERED: Potassium Phosphate 12 MMOL in Sodium Chloride 0.9% 250 ML 250 ML IV PRN (15:41)
[2017-10-16] MEDS ORDERED: Potassium Chloride 40 MEQ in Sodium Chloride 0.9% 250 ML 250 ML IVPB PRN (15:41)
[2017-10-16] MEDS ORDERED: Magnesium 2 GM/NS 0.9% 100 ML 2 GM in Premix Bag 1 BAG IVPB PRN (15:41)
[2017-10-16] MEDS: Sodium Chloride 0.45% 1,000 ML IV SCH (16:10)
[2017-10-16 16:14] LABS: Troponin I 0.062 ng/mL (< 0.028)
[2017-10-16] MEDS ORDERED: FLU VACC TS2017-18 (>65YR) 0.5 ML SYRINGE IM ONE (17:45)
--- NOTE | 2017-10-16 18:19 | HP ---
CHIEF COMPLAINT: A 4-day history of worsening shortness of breath. HISTORY OF PRESENT ILLNESS: This is a 72-year-old female with a past medical history significant for chronic respiratory failure, COPD, hypertension, hypothyroidism, as well as coronary artery disease, who presents to the hospital due to approximate 4-day history of worsening shortness of breath. The patient states that she was in her normal state up until about 3-4 days ago when she began having sh ortness of breath that began to worsen at rest. She states that she has baseline shortness of breath , but this has become considerably worse, so she decided to come to the hospital for further evaluati on and management. Along with that, she complains of an associated cough, but denies any fevers, chi lls or night sweats. Of note, the patient has been recently admitted in the hospital approximately a week and a half ago for similar symptoms. While here in the ER, she was found to have sats in the 7 0s on her 3 liters of nasal cannula prior to coming here. Because of this, the patient was placed on BiPAP. ABG was drawn at that time, which showed that she was in respiratory acidosis. Pulmonology was consulted during that time as well. PAST MEDICAL HISTORY: Please see HPI. PAST SURGICAL HISTORY: Includes coronary bypass surgery, left knee surgery and right knee surgery. SOCIAL HISTORY: The patient currently still smokes on and off. Denies any recreational drug use or alcoholic use. REVIEW OF SYSTEMS: Unable to obtain due to the patient's inability to completely incorporate due to distress from shortness of breath and placed on BiPAP. FAMILY HISTORY: Significant for hypertension as well as heart disease. ALLERGIES: BACTRIM, CODEINE, PENICILLIN, SULFA, and BACLOFEN. HOME MEDICATIONS: Include pantoprazole, Norvasc, Pulmicort and prednisone. Please see full medicati on list for full medications. PHYSICAL EXAMINATION: VITAL SIGNS: Blood pressure is 155/69, pulse is 100, respiratory rate was 20, temperature was 98.5 a nd patient was satting 94% oxygen on 40% FiO2. GENERAL: The patient appeared to be in mild distress, but significantly better from when she initial ly came in. Awake and oriented x3. HEAD: Normocephalic and atraumatic. EYES: Pupils are round and reactive to light. Extraocular muscles were intact. Conjunctivae is pin k. Sclerae nonicteric. ENT: BiPAP mask was on at this time of the examination. NECK: Soft and supple. No JVD, carotid bruits or lymphadenopathy. CARDIOVASCULAR: Regular rate and rhythm. S1 and S2 sounds are heard. No S3, no S4. RESPIRATORY: Decreased breath sounds bilaterally. I could not appreciate any wheezing, but patient denied having good air entry. No accessory muscle use, however. ABDOMEN: Positive bowel sounds. Soft, nontender and nondistended. EXTREMITIES: Pulses were 2+ both dorsalis and radial pulse. No pitting edema could be appreciated. NEUROLOGIC: Cranial nerves II through XII are grossly intact. Moving all 4 extremities voluntarily. Sensation was intact as well. LABORATORY AND IMAGING DATA: CBC: White blood cell count 19.5, hemoglobin 12.2, hematocrit was 41.6 and platelet count was 268. Sodium 139, potassium 4.3, chloride is 99, bicarbonate is 33, BUN was 2 6, creatinine was 1.42 and glucose is 159. Troponin was 0.52 and 0.062. BNP was 168.9. Chest x-ray was negative. The patient was positive for the flu. ASSESSMENT: 1. Acute on chronic respiratory failure secondary to chronic obstructive pulmonary disease exacerbat ion, possibly secondary to positive influenza. 2. Sepsis secondary to influenza. 3. Hypertension. 4. Coronary artery disease. 5. Hypothyroidism. 6. Acute kidney injury, likely secondary to sepsis. PLAN: The patient will be admitted to the critical care unit. We will keep the patient on BiPAP for this time being. Pulmonary has already been consulted. We will defer BiPAP management to Pulmonary Critical Care. We will start the patient on Solu-Medrol IV, as well as nebulizer treatments. She w ill also be started on Tamiflu as well. We will start her on Tamiflu as well as Levaquin. We will m onitor labs in a.m. including creatinine. We will also risk reduction counselor the patient on the importance of toba channel account manager cessation. Otherwise, we will resume home medication at the medicine reconciliation.
[2017-10-16] MEDS: Budesonide 0.5 MG/2 ML NEB INH SCH (18:36)
[2017-10-16] MEDS: Arformoterol 15 MCG/2 ML NEB NEB SCH (18:36)
[2017-10-16 18:37] LABS: Troponin I 0.044 ng/mL (< 0.028)
[2017-10-16] MEDS: Oseltamivir 75 MG CAP PO SCH (21:32)
[2017-10-16] MEDS: Pantoprazole 40 MG VIAL IVP SCH (21:34)
[2017-10-17] MEDS: Sodium Chloride 0.45% 1,000 ML IV SCH ×2 (03:36→17:51)
[2017-10-17 04:32] LABS: #Lymphocytes 0.4 thou/uL (1.20-3.40); #Monocytes 0.5 thou/uL (0.11-0.59); #Neutrophils 10.9 thou/uL (1.40-6.50); %Eosinophils 0.2 % (0.0-10.0); %Lymphocytes 3.7 % (21.0-51.0); %Monocytes 3.9 % (0.0-10.0); %Neutrophils 92.2 % (42.0-75.0); Hemoglobin 11.7 g/dL (12.0-16.0); Mean Corpuscular HGB CONC 29.2 g/dL (32.0-36.0); Mean Corpuscular Hemoglobin 27.1 pg (27.0-31.0); Mean Corpuscular Volume 92.9 fl (81.0-99.0); Mean Platelet Volume 7.8 fL (7.4-10.4); Platelet Count 215 thou/uL (130-400); RBC Distribution Width 15.1 % (11.5-14.5); Red Blood Cell (RBC) Count 4.31 mill/uL (4.20-5.40); White Blood Cell (WBC) Count 11.8 thou/uL (4.8-10.8)
[2017-10-17 04:33] LABS: Anion Gap 13 mmol/L (10-20); BUN (Urea Nitrogen) 29 mg/dL (9.8-20.1); Calc. Creatinine Clearance 58 mL/min (70-130); Calcium 8.8 mg/dL (7.8-10.44); Carbon Dioxide 33 mmol/L (23-31); Chloride 99 mmol/L (98-107); Estimated GFR-MDRD 42; Glucose 131 mg/dL (83-110); Potassium 4.7 mmol/L (3.5-5.1); Sodium 140 mmol/L (136-145)
[2017-10-17] MEDS: Budesonide 0.5 MG/2 ML NEB INH SCH ×2 (06:43→18:47)
[2017-10-17] MEDS: Arformoterol 15 MCG/2 ML NEB NEB SCH ×2 (06:44→18:48)
--- NOTE | 2017-10-17 08:26 | PRG ---
DATE OF SERVICE: 10/17/2017 This is a 35 minutes critical care time. SUBJECTIVE: The patient appears quite anxious today. She remains on noninvasive mechanical ventilat ion. PHYSICAL EXAMINATION: VITAL SIGNS: Her temperature is 99.0 with a T-max of 99.1, pulse 78, blood pressure 136/50, 24-hour intake is 992, output 805. GENERAL: She appears to be in mild respiratory distress on the BiPAP. HEENT: Pupils react, sclera anicteric. Oropharynx is clear. NECK: No JVD, no bruits. CARDIAC: S1 and S2 regular, without audible murmur. LUNGS: She has diffuse bilateral end expiratory wheezing. ABDOMEN: Soft, nontender. EXTREMITIES: No clubbing, cyanosis, or edema. SKIN: Shows stasis changes over the distal lower extremities. LABORATORY DATA: White blood cell count 11.8, hemoglobin 11.7, hematocrit 40, platelet count 215. S odium 140, potassium 4.7, chloride 99, CO2 33, BUN 29, creatinine 1.2, glucose 131. Troponin 0.04. ASSESSMENT: 1. Chronic obstructive pulmonary disease with exacerbation. 2. Influenza type B. 3. Acute respiratory failure requiring noninvasive mechanical ventilation. 4. Tobacco abuse. PLAN: 1. The patient stated that she was anxious and has requested anxiety medicine. I will write for ray Fowler. 2. She has requested that she not be resuscitated with intubation or CPR in the event of cardiopulmo nary arrest. 3. We will continue steroids, Tamiflu, antibiotics and aggressive breathing treatments. Prognosis i s extremely guarded at this time.
[2017-10-17] MEDS: Lorazepam 2 MG/ML VIAL SLOW IVP PRN ×3 (09:29→23:37)
[2017-10-17] MEDS: Oseltamivir 75 MG CAP PO SCH ×2 (09:29→21:18)
--- NOTE | 2017-10-17 10:35 | PDOC.PN ---
- Subjective Encounter Start Date: 10/17/17 Encounter Start Time: 08:45 states that she is anxious but otherwise shortness a little better. no acute night events - Objective Resuscitation Status: Resuscitation Status DNR:Do Not Resuscitate Vital Signs & Weight: Vital Signs (12 hours) Temp Pulse Resp Pulse Ox 10/17/17 07:33 99 F 81 19 92 L 10/17/17 06:47 81 93 L 10/17/17 06:44 77 17 94 L 10/17/17 06:43 77 17 94 L 10/17/17 06:41 77 17 94 L 10/17/17 04:00 99 F 10/17/17 03:56 79 10/17/17 03:53 77 20 100 10/17/17 00:04 72 16 100 10/17/17 00:00 99.1 F Most Recent Monitor Data Heart Rate from ECG 78 NIBP 136/50 NIBP BP-Mean 98 Respiration from ECG 18 SpO2 93 I&O: 10/16/17 10/17/17 10/18/17 06:59 06:59 06:59 Intake Total 992 Output Total 805 Balance 187 Result Diagrams: 10/17/17 03:30 10/17/17 03:30 Phys Exam - Physical Examination Constitutional: NAD HEENT: PERRLA, moist MMs, sclera anicteric Neck: no nodes, no JVD, supple Respiratory: no rales, no rhonchi decreased BS b/l Cardiovascular: RRR, no significant murmur Gastrointestinal: soft, non-tender Musculoskeletal: no edema, pulses present Neurological: moves all 4 limbs Dx/Plan (1) Acute and chronic respiratory failure Code(s): J96.20 - ACUTE AND CHR RESP FAILURE, UNSP W HYPOXIA OR HYPERCAPNIA Status: Acute (2) COPD exacerbation Code(s): J44.1 - CHRONIC OBSTRUCTIVE PULMONARY DISEASE W (ACUTE) EXACERBATION Status: Acute (3) Nicotine abuse Code(s): Z72.0 - TOBACCO USE Status: Acute - Plan cont current plan of care, continue antibiotics, respiratory therapy * . continue Bipap will wean per pulm recs continue with IV abx continue with Solumedrol aids counselor on tobacco cessation prognosis guarded
--- NOTE | 2017-10-17 11:10 | RAD ---
PORTABLE CHEST 1 VIEW: Date: 10/17/17 Time: 0542 hours HISTORY: Respiratory distress. FINDINGS/IMPRESSION: Comparison made with exam from previous day. The heart size is stable. Stable mildly increased linear interstitial densities are seen. No lobar co nsolidation or pneumothoraces, jesús pulmonary edema, or large effusions are identified. POS: [facility]
[2017-10-17] MEDS: Pantoprazole 40 MG VIAL IVP SCH (21:20)
[2017-10-18 04:17] LABS: #Basophils 0.1 thou/uL (0.0-0.2); #Lymphocytes 0.5 thou/uL (1.20-3.40); #Monocytes 1.2 thou/uL (0.11-0.59); #Neutrophils 18.2 thou/uL (1.40-6.50); %Basophils 0.3 % (0.0-1.0); %Eosinophils 0.2 % (0.0-10.0); %Lymphocytes 2.4 % (21.0-51.0); %Monocytes 6.1 % (0.0-10.0); %Neutrophils 91.1 % (42.0-75.0); Hemoglobin 11.8 g/dL (12.0-16.0); Mean Corpuscular HGB CONC 28.1 g/dL (32.0-36.0); Mean Corpuscular Hemoglobin 26.7 pg (27.0-31.0); Mean Corpuscular Volume 95.2 fl (81.0-99.0); Mean Platelet Volume 7.4 fL (7.4-10.4); Platelet Count 254 thou/uL (130-400); RBC Distribution Width 15.1 % (11.5-14.5); Red Blood Cell (RBC) Count 4.41 mill/uL (4.20-5.40); White Blood Cell (WBC) Count 19.9 thou/uL (4.8-10.8)
[2017-10-18] MEDS: Sodium Chloride 0.45% 1,000 ML IV SCH ×2 (04:31→20:52)
[2017-10-18 04:36] LABS: Anion Gap 13 mmol/L (10-20); BUN (Urea Nitrogen) 35 mg/dL (9.8-20.1); Calc. Creatinine Clearance 60 mL/min (70-130); Calcium 8.9 mg/dL (7.8-10.44); Carbon Dioxide 35 mmol/L (23-31); Chloride 98 mmol/L (98-107); Estimated GFR-MDRD 43; Glucose 140 mg/dL (83-110); Potassium 4.7 mmol/L (3.5-5.1); Sodium 141 mmol/L (136-145)
[2017-10-18] MEDS: Arformoterol 15 MCG/2 ML NEB NEB SCH ×2 (07:08→18:36)
[2017-10-18] MEDS: Budesonide 0.5 MG/2 ML NEB INH SCH ×2 (07:33→18:35)
--- NOTE | 2017-10-18 08:49 | RAD ---
PORTABLE CHEST 1 VIEW: Date: 10/18/17 Time: 0508 hours HISTORY: Respiratory distress. FINDINGS/IMPRESSION: Comparison made with exam from previous day. The heart size is stable. There is mild pulmonary vascular congestion. No pneumothoraces, lobar conso lidation, or large effusions are seen. POS: [facility]
--- NOTE | 2017-10-18 08:50 | PRG ---
DATE OF SERVICE: 10/18/2017 SUBJECTIVE: The patient is more somnolent today. She did get some Ativan last night for anxiety. OBJECTIVE: VITAL SIGNS: Temperature is 98.1, pulse 99, blood pressure 154/75, O2 sat 95%. She remains on the B iPAP and has not been able to come off 2 days. Total intake for 24 hours is 2497, output 1455. HEENT: Unremarkable. NECK: No JVD. LUNGS: Clear but distant breath sounds. CARDIAC: S1 and S2 regular. ABDOMEN: Soft, nontender. EXTREMITIES: No clubbing, cyanosis, or edema. LABORATORY DATA AND X-RAY FINDINGS: Sodium 141, potassium 4.7, chloride 90, CO2 35, BUN 35, creatini ne 1.2, glucose 140. White blood cell count 19.9, hemoglobin 11.8, hematocrit 42, platelet count 254 . Chest x-ray shows no significant change. ASSESSMENT: 1. Acute respiratory failure requiring mechanical ventilation. 2. Chronic obstructive pulmonary disease with exacerbation. 3. Influenza type B. 4. History of tobacco abuse. PLAN: I will attempt to wean the patient from the BiPAP today. I will try to minimize her Ativan. Continue Tamiflu and Levaquin, decrease steroid dose. Hopefully, she can begin taking some clear liq uids if she is able to wake up. Otherwise, we will have to think about putting a Dobbhoff tube down tomorrow initiating enteral tube feeds. Dr. Cash will reassume care of this patient tomorrow.
[2017-10-18] MEDS: Oseltamivir 75 MG CAP PO SCH ×2 (11:53→21:02)
--- NOTE | 2017-10-18 12:10 | PDOC.PN ---
- Subjective Encounter Start Date: 10/18/17 Encounter Start Time: 11:30 Subjective: lethargic this am, on bipap - Objective Resuscitation Status: Resuscitation Status DNR:Do Not Resuscitate MAR Reviewed: Yes Vital Signs & Weight: Vital Signs (12 hours) Temp Pulse Resp Pulse Ox 10/18/17 12:00 98.7 F 10/18/17 10:31 97 93 L 10/18/17 10:28 98 21 H 93 L 10/18/17 08:00 98.6 F 97 19 95 10/18/17 07:33 104 H 19 92 L 10/18/17 07:08 94 18 94 L 10/18/17 07:05 95 10/18/17 07:02 95 25 H 95 10/18/17 04:00 98.1 F 10/18/17 03:29 91 16 93 L 10/18/17 00:11 88 18 95 Most Recent Monitor Data Heart Rate from ECG 99 NIBP 161/65 NIBP BP-Mean 102 Respiration from ECG 19 SpO2 96 I&O: 10/17/17 10/18/17 10/19/17 06:59 06:59 06:59 Intake Total 992 2497 Output Total 805 1455 290 Balance 187 1042 -290 Result Diagrams: 10/18/17 03:13 10/18/17 03:13 Phys Exam - Physical Examination HEENT: PERRLA, moist MMs Neck: no JVD, supple Respiratory: no wheezing, no rales rhonchi+ Cardiovascular: RRR, no significant murmur Gastrointestinal: soft, non-tender, positive bowel sounds Musculoskeletal: no edema, pulses present Neurological: non-focal, moves all 4 limbs Dx/Plan (1) Influenza B Code(s): J10.1 - FLU DUE TO OTH IDENT INFLUENZA VIRUS W OTH RESP MANIFEST Status: Acute (2) COPD exacerbation Code(s): J44.1 - CHRONIC OBSTRUCTIVE PULMONARY DISEASE W (ACUTE) EXACERBATION Status: Acute (3) Acute respiratory failure with hypoxia and hypercapnia Code(s): J96.01 - ACUTE RESPIRATORY FAILURE WITH HYPOXIA; J96.02 - ACUTE RESPIRATORY FAILURE WITH HYPERCAPNIA Status: Acute (4) Hypertension Code(s): I10 - ESSENTIAL (PRIMARY) HYPERTENSION Status: Chronic Qualifiers: Hypertension type: essential hypertension Qualified Code(s): I10 - Essential (primary) hypertension (5) Hypothyroid Code(s): E03.9 - HYPOTHYROIDISM, UNSPECIFIED Status: Chronic Qualifiers: Hypothyroidism type: unspecified Qualified Code(s): E03.9 - Hypothyroidism , unspecified (6) Normocytic anemia Code(s): D64.9 - ANEMIA, UNSPECIFIED Status: Chronic - Plan is on levaquin, tamiflu -: nebs, steroids -: avoid narcotics/sleep/anxiety meds unless its badly needed -: bipap weaning trial -: elevated wbc sec to steroids * . Review of Systems - Medications/Allergies Allergies/Adverse Reactions: Allergies Allergy/AdvReac Type Severity Reaction Status Date / Time Penicillins Allergy Unknown Rash Verified 10/06/17 16:20 Sulfa (Sulfonamide Allergy Unknown Rash Verified 10/06/17 16:20 Antibiotics) baclofen Allergy Verified 10/06/17 16:20 sulfamethoxazole Allergy Rash Verified 10/06/17 16:20 [From Bactrim] trimethoprim [From Bactrim] Allergy Rash Verified 10/06/17 16:20 codeine AdvReac Intermediate Verified 10/06/17 16:20 Medications: Current Medications Albuterol/Ipratropium (Duoneb) 3 ml NEB [id number] FROY Last Admin: 10/18/17 10:28 Dose: 3 ml Arformoterol Tartrate (Brovana) 15 mcg NEB BID-RT FROY Last Admin: 10/18/17 07:08 Dose: 15 mcg Budesonide (Pulmicort Neb Solution) 0.5 mg INH BID-RT FROY Last Admin: 10/18/17 07:33 Dose: 0.5 mg Sodium Chloride (1/2 Normal Saline) 1,000 mls @ 75 mls/hr IV .[id number] FROY Last Admin: 10/18/17 04:31 Dose: 1,000 mls Levofloxacin 750 mg/ Device 150 mls @ 100 mls/hr IVPB 1600 FROY Last Admin: 10/17/17 16:22 Dose: 150 mls Potassium Chloride 40 meq/ (Sodium Chloride) 270 mls @ 135 mls/hr IVPB ASDIR PRN PRN Reason: FOR SERUM K+ 2.5 - 3.5 Potassium Chloride 40 meq/ (Device) 100 mls @ 50 mls/hr IVPB ASDIR PRN PRN Reason: FOR SERUM K+ 2.5 - 3.5 Magnesium Sulfate 1 gm/ Sodium (Chloride) 102 mls @ 102 mls/hr IV PRN PRN PRN Reason: MAG LEVEL 1.4 - 2.0 Magnesium Sulfate 2 gm/ Device 100 mls @ 100 mls/hr IVPB ASDIR PRN PRN Reason: MAGNESIUM < 1.4 Potassium Phosphate 9 mmol/ (Sodium Chloride) 103 mls @ 25.75 mls/hr IVPB ASDIR PRN PRN Reason: Phosphate 1.0-1.8 Potassium Phosphate 12 mmol/ (Sodium Chloride) 254 mls @ 63.5 mls/hr IV ASDIR PRN PRN Reason: Serum phosphate 0.5-0.9 Potassium Phosphate 15 mmol/ (Sodium Chloride) 255 mls @ 63.75 mls/hr IV ASDIR PRN PRN Reason: Serum Phos < 0.5 Lorazepam (Ativan) 1 mg SLOW IVP Q6H PRN PRN Reason: Anxiety/Agitation Magnesium Oxide (Magnesium Oxide) 400 mg PO BIDPRN PRN PRN Reason: FOR SERUM MAG 1.4 - 2.0 Magnesium Oxide (Magnesium Oxide) 800 mg PO PRN PRN PRN Reason: FOR SERUM MAG < 1.4 Methylprednisolone Sodium Succinate (Solu-Medrol) 20 mg IVP 0400,1000,1600, 2200 [facility] Last Admin: 10/18/17 10:30 Dose: 20 mg Miscellaneous Medication (Phos-Nak) 1 pkt PO TIDPRN PRN PRN Reason: FOR PHOS LEVEL 1.0 - 1.8 Miscellaneous Medication (Phos-Nak) 2 pkt PO TIDPRN PRN PRN Reason: FOR PHOS LEVEL 0.5 - 1.0 Ccu Electrolyte (Replacement Protocol) 0 each FS PRN PRN PRN Reason: FOR ELECTROLYTE REPLACEMENT Oseltamivir Phosphate (Tamiflu) 75 mg PO BID [facility] Stop: 10/21/17 09:01 Last Admin: 10/18/17 11:53 Dose: 75 mg Pantoprazole Sodium (Protonix) 40 mg IVP 2100 [facility] Last Admin: 10/17/17 21:20 Dose: 40 mg Potassium Chloride (K-Dur) 40 meq PO ASDIR PRN PRN Reason: FOR SERUM K+ 2.5 - 3.5 Potassium Chloride (Klor-Con) 40 meq PER TUBE ASDIR PRN PRN Reason: FOR SERUM K+ 2.5-3.5
[2017-10-18] MEDS: Pantoprazole 40 MG VIAL IVP SCH (20:52)
[2017-10-18] MEDS: Lorazepam 2 MG/ML VIAL SLOW IVP PRN (23:00)
[2017-10-19 04:24] LABS: Anion Gap 10 mmol/L (10-20); BUN (Urea Nitrogen) 46 mg/dL (9.8-20.1); Calc. Creatinine Clearance 59 mL/min (70-130); Calcium 8.7 mg/dL (7.8-10.44); Carbon Dioxide 35 mmol/L (23-31); Chloride 99 mmol/L (98-107); Estimated GFR-MDRD 43; Glucose 127 mg/dL (83-110); Potassium 4.3 mmol/L (3.5-5.1); Sodium 140 mmol/L (136-145)
[2017-10-19 04:40] LABS: #Lymphocytes 0.5 thou/uL (1.20-3.40); #Monocytes 0.8 thou/uL (0.11-0.59); #Neutrophils 13.5 thou/uL (1.40-6.50); %Eosinophils 0.2 % (0.0-10.0); %Lymphocytes 3.2 % (21.0-51.0); %Monocytes 5.7 % (0.0-10.0); Hemoglobin 11.1 g/dL (12.0-16.0); Mean Corpuscular Hemoglobin 27.6 pg (27.0-31.0); Mean Corpuscular Volume 95.1 fl (81.0-99.0); Mean Platelet Volume 7.6 fL (7.4-10.4); Platelet Count 229 thou/uL (130-400); RBC Distribution Width 14.8 % (11.5-14.5); Red Blood Cell (RBC) Count 4.02 mill/uL (4.20-5.40); White Blood Cell (WBC) Count 14.8 thou/uL (4.8-10.8)
[2017-10-19] MEDS: Oseltamivir 75 MG CAP PO SCH ×2 (08:33→20:32)
[2017-10-19] MEDS: Arformoterol 15 MCG/2 ML NEB NEB SCH ×2 (08:35→18:17)
[2017-10-19] MEDS: Budesonide 0.5 MG/2 ML NEB INH SCH ×2 (08:35→18:17)
[2017-10-19] MEDS: Sodium Chloride 0.45% 1,000 ML IV SCH ×2 (08:36→21:18)
[2017-10-19] MEDS ORDERED: Amiodarone HCl 150 MG, Admixture Fee 1 EACH in Dextrose 5% in Water 100 ML IVPB SCH (12:30)
[2017-10-19] MEDS: Amiodarone HCl 450 MG, Admixture Fee 1 EACH in Dextrose 5% in Water 250 ML IVPB SCH ×2 (12:48→21:14)
--- NOTE | 2017-10-19 12:49 | PDOC.PN ---
- Subjective Encounter Start Date: 10/19/17 Encounter Start Time: 11:00 Subjective: is off bipap, now on nasal canula -: not fully oriented - Objective Resuscitation Status: Resuscitation Status DNR:Do Not Resuscitate MAR Reviewed: Yes Vital Signs & Weight: Vital Signs (12 hours) Temp Pulse Resp Pulse Ox 10/19/17 10:55 92 95 10/19/17 10:54 86 19 95 10/19/17 08:36 99 10/19/17 08:32 78 15 99 10/19/17 08:00 98.7 F 78 15 98 10/19/17 04:00 98.2 F Most Recent Monitor Data Heart Rate from ECG 142 NIBP 148/62 NIBP BP-Mean 111 Respiration from ECG 14 SpO2 95 I&O: 10/18/17 10/19/17 10/20/17 06:59 06:59 06:59 Intake Total 2497 2482 120 Output Total 1455 1320 450 Balance 1042 1162 -330 Result Diagrams: 10/19/17 03:54 10/19/17 03:54 Phys Exam - Physical Examination HEENT: PERRLA, moist MMs Neck: no JVD, supple Respiratory: no rales, wheezing present still using accessory muscles Cardiovascular: RRR, no significant murmur Gastrointestinal: soft, non-tender, positive bowel sounds Musculoskeletal: no edema, pulses present Neurological: non-focal, moves all 4 limbs Dx/Plan (1) Influenza B Code(s): J10.1 - FLU DUE TO OTH IDENT INFLUENZA VIRUS W OTH RESP MANIFEST Status: Acute (2) COPD exacerbation Code(s): J44.1 - CHRONIC OBSTRUCTIVE PULMONARY DISEASE W (ACUTE) EXACERBATION Status: Acute (3) Acute respiratory failure with hypoxia and hypercapnia Code(s): J96.01 - ACUTE RESPIRATORY FAILURE WITH HYPOXIA; J96.02 - ACUTE RESPIRATORY FAILURE WITH HYPERCAPNIA Status: Acute (4) Hypertension Code(s): I10 - ESSENTIAL (PRIMARY) HYPERTENSION Status: Chronic Qualifiers: Hypertension type: essential hypertension Qualified Code(s): I10 - Essential (primary) hypertension (5) Hypothyroid Code(s): E03.9 - HYPOTHYROIDISM, UNSPECIFIED Status: Chronic Qualifiers: Hypothyroidism type: unspecified Qualified Code(s): E03.9 - Hypothyroidism , unspecified (6) Normocytic anemia Code(s): D64.9 - ANEMIA, UNSPECIFIED Status: Chronic - Plan on levaq and tamiflu -: solumedrol iv q6h, nebs -: encourage po intake, oob to chair as tolerated -: has deconditioning, at risk of going back on bipap * . Review of Systems - Medications/Allergies Allergies/Adverse Reactions: Allergies Allergy/AdvReac Type Severity Reaction Status Date / Time Penicillins Allergy Unknown Rash Verified 10/06/17 16:20 Sulfa (Sulfonamide Allergy Unknown Rash Verified 10/06/17 16:20 Antibiotics) baclofen Allergy Verified 10/06/17 16:20 sulfamethoxazole Allergy Rash Verified 10/06/17 16:20 [From Bactrim] trimethoprim [From Bactrim] Allergy Rash Verified 10/06/17 16:20 codeine AdvReac Intermediate Verified 10/06/17 16:20 Medications: Current Medications Albuterol/Ipratropium (Duoneb) 3 ml NEB [id number] FROY Last Admin: 10/19/17 10:54 Dose: 3 ml Arformoterol Tartrate (Brovana) 15 mcg NEB BID-RT FROY Last Admin: 10/19/17 08:35 Dose: 15 mcg Budesonide (Pulmicort Neb Solution) 0.5 mg INH BID-RT FROY Last Admin: 10/19/17 08:35 Dose: 0.5 mg Sodium Chloride (1/2 Normal Saline) 1,000 mls @ 75 mls/hr IV .[id number] FROY Last Admin: 10/19/17 08:36 Dose: 1,000 mls Levofloxacin 750 mg/ Device 150 mls @ 100 mls/hr IVPB 1600 FROY Last Admin: 10/18/17 17:50 Dose: 150 mls Potassium Chloride 40 meq/ (Sodium Chloride) 270 mls @ 135 mls/hr IVPB ASDIR PRN PRN Reason: FOR SERUM K+ 2.5 - 3.5 Potassium Chloride 40 meq/ (Device) 100 mls @ 50 mls/hr IVPB ASDIR PRN PRN Reason: FOR SERUM K+ 2.5 - 3.5 Magnesium Sulfate 1 gm/ Sodium (Chloride) 102 mls @ 102 mls/hr IV PRN PRN PRN Reason: MAG LEVEL 1.4 - 2.0 Magnesium Sulfate 2 gm/ Device 100 mls @ 100 mls/hr IVPB ASDIR PRN PRN Reason: MAGNESIUM < 1.4 Potassium Phosphate 9 mmol/ (Sodium Chloride) 103 mls @ 25.75 mls/hr IVPB ASDIR PRN PRN Reason: Phosphate 1.0-1.8 Potassium Phosphate 12 mmol/ (Sodium Chloride) 254 mls @ 63.5 mls/hr IV ASDIR PRN PRN Reason: Serum phosphate 0.5-0.9 Potassium Phosphate 15 mmol/ (Sodium Chloride) 255 mls @ 63.75 mls/hr IV ASDIR PRN PRN Reason: Serum Phos < 0.5 Amiodarone HCl 450 mg/Miscellaneous Medication 1 each/ Dextrose/Water 259 mls @ 0 mls/hr IVPB INF FROY; As Directed PRN Reason: Protocol Last Admin: 10/19/17 12:48 Dose: 259 mls Lorazepam (Ativan) 1 mg SLOW IVP Q6H PRN PRN Reason: Anxiety/Agitation Last Admin: 10/18/17 23:00 Dose: 1 mg Magnesium Oxide (Magnesium Oxide) 400 mg PO BIDPRN PRN PRN Reason: FOR SERUM MAG 1.4 - 2.0 Magnesium Oxide (Magnesium Oxide) 800 mg PO PRN PRN PRN Reason: FOR SERUM MAG < 1.4 Methylprednisolone Sodium Succinate (Solu-Medrol) 20 mg IVP 0400,1000,1600, 2200 [facility] Last Admin: 10/19/17 10:37 Dose: 20 mg Miscellaneous Medication (Phos-Nak) 1 pkt PO TIDPRN PRN PRN Reason: FOR PHOS LEVEL 1.0 - 1.8 Miscellaneous Medication (Phos-Nak) 2 pkt PO TIDPRN PRN PRN Reason: FOR PHOS LEVEL 0.5 - 1.0 Ccu Electrolyte (Replacement Protocol) 0 each FS PRN PRN PRN Reason: FOR ELECTROLYTE REPLACEMENT Oseltamivir Phosphate (Tamiflu) 75 mg PO BID [facility] Stop: 10/21/17 09:01 Last Admin: 10/19/17 08:33 Dose: 75 mg Pantoprazole Sodium (Protonix) 40 mg PO 2100 [facility] Potassium Chloride (K-Dur) 40 meq PO ASDIR PRN PRN Reason: FOR SERUM K+ 2.5 - 3.5 Potassium Chloride (Klor-Con) 40 meq PER TUBE ASDIR PRN PRN Reason: FOR SERUM K+ 2.5-3.5
--- NOTE | 2017-10-19 13:22 | PRG ---
DATE OF SERVICE: 10/19/2017 SERVICE: Pulmonary Medicine INTERVAL HISTORY: The patient is doing poorly from a respiratory standpoint. Overnight, she did go into atrial fibrillation with RVR and was initiated on an amiodarone drip. Her heart rate is under slightly better control, but she is still tachycardic. Her blood pressures remained stable throughout this. She remains essentially continuously on the BiPAP. Whenever she has a break, she can stay off for 10-20 minutes, but then has to put back on her unit. She currently says that she is a little hungry for air. Once again we reaffirmed that she is remaining DNR/DNI moving forward. Otherwise, there has been no interval change to her condition. PHYSICAL EXAMINATION: VITAL SIGNS: Afebrile, pulse 142, blood pressure 148/62, respirations 14, saturation 95% on 27% FiO2 and a PEEP of 5. GENERAL: The patient is awake and alert. She is tachypneic and has mild respiratory distress. HEENT: Normocephalic, atraumatic. Sclerae are white, conjunctivae pink. Oral and nasal mucosa is moist without lesions. LUNGS: Decent air entry. There is a prolonged expiratory phase. Wheezing is present. Dependent crackles are also evident. HEART: Normal rate, regular. ABDOMEN: Soft, nontender, nondistended. Bowel sounds are positive. MUSCULOSKELETAL: No cyanosis or clubbing. No pitting in the bilateral lower extremities. NEUROLOGIC: Grossly nonfocal. LABORATORY DATA: WBC 14.8, hemoglobin 11.1, platelets 229,000. PH 7.21, pCO2 94, pO2 55.4. Creatinine 1.24. BUN 46. Basic metabolic profile is otherwise unremarkable. Bicarbonate is 35, which is likely below her baseline. Ammonia 37. Cortisol level 7.6, free T4 4.7. B12 is normal. Blood cultures x2 remain negative. Influenza B is positive, A is negative. IMAGING: Chest x-ray demonstrates mild pulmonary vascular congestion without pneumothorax, lobar consolidation, or large effusion identified. ASSESSMENT: 1. Acute on chronic hypoxic and hypercapnic respiratory failure. 2. Chronic obstructive pulmonary disease with acute exacerbation. 3. Influenza B. 4. History of tobacco abuse. PLAN: We will discontinue the BiPAP in favor of the patient's home ventilator. We will continue our supportive care including Tamiflu, Levaquin, and steroids. BiPAP will be continued on an on and off basis. If by tomorrow, she cannot tolerate BiPAP breaks, tube feeds will be initiated. Pulmonary Critical Care will continue to follow while she remains in this location. Critical care time: 30 minutes. REFUGIOD
--- NOTE | 2017-10-19 15:28 | PQF ---
CLINICAL DOCUMENTATION IMPROVEMENT CLARIFICATION FORM: ICD-10 Updated PLEASE DO AN ADDENDUM TO THE PROGRESS NOTE WITH ANY DOCUMENTATION UPDATES OR ADDITIONS AND CARRY THROUGH TO DC SUMMARY. THANK YOU. DATE: 10/19/17 ATTN: DR. MONREAL Please exercise your independent, professional judgment in responding to the clarification form. Clinical indicators are provided on the bottom of this form for your review Please check appropriate box(s) to clarify if the following diagnosis has been ruled in our ruled out: SEPSIS [ x ] Ruled in diagnosis [ ] Continue to treat [ ] Resolved [ ] Ruled out diagnosis [ ] Cannot rule out diagnosis [ ] Other diagnosis [ ] Unable to determine In addition, please specify: Present on Admission (POA): [ x ] Yes [ ] No [ ] Unable to determine For continuity of documentation, please document condition throughout progress notes and discharge summary. Thank You. CLINICAL INDICATORS - SIGNS / SYMPTOMS / LABS H&P 10/16: "SEPSIS SECONDARY TO INFLUENZA" "ACUTE KIDNEY INJURY, LIKELY SECONDARY TO SEPSIS" PULSE 112 RR 25 WBC 19.5 GLUCOSE 159 RISKS: INFLUENZA YAEL COPD EXACERBATION TREATMENT: IV LEVAQUIN (10/16-PRESENT) TAMIFLU (10/16-PRESENT) IV FLUIDS (10/16-PRESENT) CRITICAL CARE MONITORING BLOOD CULTURES BIPAP PULMONARY CONSULT (This form is maintained as a part of the permanent medical record) 2014 [employer]. All Rights Reserved [email or web address] [email or web address] Office: [phone] MTDD
--- NOTE | 2017-10-19 17:15 | EKG ---
Test Reason : Blood Pressure : / mmHG Vent. Rate : 133 BPM Atrial Rate : 107 BPM P-R Int : 000 ms QRS Dur : 098 ms QT Int : 324 ms P-R-T Axes : 000 -42 072 degrees QTc Int : 482 ms Undetermined rhythm Possible A fib with RVR and some aberantly conducted beats Left axis deviation Nonspecific ST abnormality Abnormal ECG When compared with ECG of 16-OCT-2017 11:55, (Unconfirmed) Current undetermined rhythm precludes rhythm comparison, needs review ST now depressed in Inferior leads T wave amplitude has decreased in Inferior leads T wave inversion no longer evident in Lateral leads Confirmed by DR. Bijan MEDLEY ([id number]) on 10/19/2017 5:14:54 PM Referred By: VICKI Confirmed By:DR. Bijan MEDLEY
[2017-10-19] MEDS: Lorazepam 2 MG/ML VIAL SLOW IVP PRN (20:37)
[2017-10-20] MEDS: Lorazepam 2 MG/ML VIAL SLOW IVP PRN ×3 (03:24→21:21)
[2017-10-20 04:47] LABS: #Eosinphils 0.1 thou/uL (0.0-0.7); #Lymphocytes 0.5 thou/uL (1.20-3.40); #Monocytes 0.7 thou/uL (0.11-0.59); %Basophils 0.1 % (0.0-1.0); %Eosinophils 0.4 % (0.0-10.0); %Monocytes 4.9 % (0.0-10.0); %Neutrophils 90.6 % (42.0-75.0); Mean Corpuscular HGB CONC 27.7 g/dL (32.0-36.0); Mean Corpuscular Hemoglobin 25.9 pg (27.0-31.0); Mean Corpuscular Volume 93.7 fl (81.0-99.0); Mean Platelet Volume 7.7 fL (7.4-10.4); Platelet Count 206 thou/uL (130-400); Red Blood Cell (RBC) Count 4.25 mill/uL (4.20-5.40); White Blood Cell (WBC) Count 13.2 thou/uL (4.8-10.8)
[2017-10-20 05:05] LABS: Anion Gap 11 mmol/L (10-20); BUN (Urea Nitrogen) 46 mg/dL (9.8-20.1); Calc. Creatinine Clearance 66 mL/min (70-130); Calcium 8.8 mg/dL (7.8-10.44); Carbon Dioxide 34 mmol/L (23-31); Chloride 99 mmol/L (98-107); Estimated GFR-MDRD 49; Glucose 127 mg/dL (83-110); Sodium 139 mmol/L (136-145)
[2017-10-20] MEDS: Budesonide 0.5 MG/2 ML NEB INH SCH ×2 (07:16→18:13)
[2017-10-20] MEDS: Arformoterol 15 MCG/2 ML NEB NEB SCH ×2 (07:17→18:13)
--- NOTE | 2017-10-20 08:17 | PRG ---
DATE OF SERVICE: 10/20/2017 SUBJECTIVE: The patient is awake. She is slightly confused. She is wanting something to drink. Sh priya is on oxygen. PHYSICAL EXAMINATION: VITAL SIGNS: Blood pressure 149/50. Heart rate 80. She is afebrile. GENERAL: Upon evaluation, she is awake, slightly confused. NECK: Supple with no increased JVP or carotid bruit. Carotid had good upstroke, no thyromegaly. COR: Regular rate and rhythm. CHEST: Decreased breath sounds bilaterally with few upper lobe wheezing. ABDOMEN: Soft, nontender with normoactive bowel sounds. No bruit or organomegaly. EXTREMITIES: She has 1+ pitting edema. She had palpable pedal pulses. SKIN: There is no evidence of ulcers, lesion or rash. NEUROLOGIC: She is awake, but slightly confused. ASSESSMENT: 1. Chronic obstructive pulmonary disease. 2. Flu. 3. Hypertension. 4. Anxiety disorder. 5. Hypothyroidism. 6. Multiple medical problems. PLAN: We will keep the patient here in ICU. We will follow up with lab in the morning. The patient verbalized understanding and all questions answered to her satisfaction.
[2017-10-20] MEDS: Oseltamivir 75 MG CAP PO SCH ×2 (09:27→21:10)
[2017-10-20] MEDS: Sodium Chloride 0.45% 1,000 ML IV SCH (12:46)
[2017-10-20] MEDS: Amiodarone HCl 450 MG, Admixture Fee 1 EACH in Dextrose 5% in Water 250 ML IVPB SCH (13:42)
--- NOTE | 2017-10-20 23:26 | PRG ---
DATE OF SERVICE: 10/20/2017 SERVICE: Pulmonary Medicine. INTERVAL HISTORY: Patient is doing fine from a respiratory standpoint. This morning, we will give h er a break from the BiPAP. She did much better with this today. Otherwise, there has been no interv al change to her condition. She is yet to be out of bed since she has been here. She is tolerating p.o. very poorly, though she is drinking a little bit of Ensure a couple of times daily. PHYSICAL EXAMINATION: VITAL SIGNS: Afebrile, pulse 76, blood pressure 154/46, respirations 15, saturation 99% on 23% of Fi O2. GENERAL: Patient is awake and alert. She is in no apparent distress. LUNGS: Decent air entry. There is reduced air entry with a prolonged expiratory phase. HEART: Normal rate, regular. ABDOMEN: Soft, nontender, nondistended. Bowel sounds are positive. MUSCULOSKELETAL: No cyanosis or clubbing. No pitting in the bilateral lower extremities. NEUROLOGIC: Grossly nonfocal. LABORATORY DATA: WBC 13.2, hemoglobin 11.1, platelets 206,000 and stable. Bicarbonate 34. Basic me tabolic profile is otherwise unremarkable. Creatinine is down trending to 1.1. Cortisol 7.6. Blood cultures x2 is negative. Influenza B is positive. ASSESSMENT: 1. Acute on chronic hypoxic and hypercapnic respiratory failure. 2. Chronic obstructive pulmonary disease with acute exacerbation. 3. Influenza B. 4. Acute kidney injury, resolved. 5. History of tobacco abuse. PLAN: The patient does not have anybody to bring her home ventilator up. We will try to minimize he r BiPAP as much as tolerated. We will continue using at night and as needed throughout the daytime. That being said, we will get this into trouble if she has too much use of that because it will dry o ut the secretions in her lung. We will start on mobilization efforts today and if she does well over night, we will consider transitioning her to the [facility]. Pulmonary will continue to follow while she r emains in this location.
[2017-10-21] MEDS: Sodium Chloride 0.45% 1,000 ML IV SCH ×2 (00:10→03:27)
[2017-10-21] MEDS: Lorazepam 2 MG/ML VIAL SLOW IVP PRN (03:11)
[2017-10-21] MEDS: Amiodarone HCl 450 MG, Admixture Fee 1 EACH in Dextrose 5% in Water 250 ML IVPB SCH (03:27)
[2017-10-21] MEDS: Budesonide 0.5 MG/2 ML NEB INH SCH ×2 (06:48→18:35)
[2017-10-21] MEDS: Arformoterol 15 MCG/2 ML NEB NEB SCH ×2 (07:42→18:35)
[2017-10-21] MEDS: Oseltamivir 75 MG CAP PO SCH (09:54)
[2017-10-21] MEDS: predniSONE 20 MG TAB PO SCH (09:54)
--- NOTE | 2017-10-21 11:57 | PRG ---
DATE OF SERVICE: 10/21/2017 SERVICE: Pulmonary Medicine. INTERVAL HISTORY: Patient is doing fine from a respiratory standpoint. She actually indicates she i s breathing fairly comfortably. She denies any fevers or chills. Otherwise, there has been no inter jono change to her condition. She has returned to sinus rhythm with frequent PACs giving an irregular appearance, but there is a clear P-waves present. She remains on an amiodarone drip, which will be adjusted today. She remains extraordinarily weak and is going to focus on mobilizing today. PHYSICAL EXAMINATION: VITAL SIGNS: Afebrile, pulse 78, blood pressure 164/66, respirations 23, saturation 96% on 2 liters nasal cannula. GENERAL: Patient is awake, alert, no apparent distress. LUNGS: Decreased air entry with prolonged expiratory phase and wheezing present. She is moving more air today than she has in days past. No crackles are appreciated. HEART: Normal rate, regular. ABDOMEN: Soft, nontender, nondistended. Bowel sounds positive. MUSCULOSKELETAL: No cyanosis or clubbing. No pitting of the bilateral lower extremities. NEUROLOGIC: Grossly nonfocal. ASSESSMENT: 1. Acute on chronic hypoxic and hypercapnic respiratory failure. 2. Chronic obstructive pulmonary disease with acute exacerbation. 3. Influenza B. 4. Atrial fibrillation with rapid ventricular response, returned to sinus rhythm with frequent PACs. 5. Tobacco abuse, ongoing. PLAN: We will continue supportive care. We will mobilize the patient as much as tolerated and give her BiPAP breaks. She will use this thing 2 to 3 times on a daily basis. I will transition out of t ICU to the [facility]. We will stop her amiodarone drip and switch her over to some of her home rate co ntrol medications. Pulmonary Critical Care will continue to follow during this hospital stay. Case management consultation will be placed for skilled placement as the patient will likely do poorly at home without significant support. Given her increasing debility through this hospital stay.
[2017-10-22 05:17] LABS: Anion Gap 13 mmol/L (10-20); BUN (Urea Nitrogen) 48 mg/dL (9.8-20.1); Calc. Creatinine Clearance 63 mL/min (70-130); Calcium 9.4 mg/dL (7.8-10.44); Carbon Dioxide 34 mmol/L (23-31); Chloride 103 mmol/L (98-107); Estimated GFR-MDRD 47; Glucose 96 mg/dL (83-110); Potassium 5.7 mmol/L (3.5-5.1); Sodium 144 mmol/L (136-145)
[2017-10-22 05:30] LABS: Band 3 % (5-11); Hemoglobin 11.2 g/dL (12.0-16.0); Hypochromia SLIGHT = 6-15 cells (100X) (0-5/hpf); Lymphocytes 11 % (21-51); MDiff Complete? YES; Mean Corpuscular HGB CONC 28.7 g/dL (32.0-36.0); Mean Corpuscular Volume 94.1 fl (81.0-99.0); Mean Platelet Volume 8.1 fL (7.4-10.4); Monocytes 7 % (0-10); Myelocyte 3 % (0-0); Neutrophil 76 % (42-75); Platelet Count 183 thou/uL (130-400); RBC Distribution Width 15.2 % (11.5-14.5); Red Blood Cell (RBC) Count 4.15 mill/uL (4.20-5.40); White Blood Cell (WBC) Count 12.8 thou/uL (4.8-10.8)
[2017-10-22] MEDS: Budesonide 0.5 MG/2 ML NEB INH SCH ×2 (08:04→18:40)
--- NOTE | 2017-10-22 08:12 | RAD ---
PORTABLE AP CHEST RADIOGRAPH: Date: 10-22-17 History: CHF. Comparison: 10-18-17 FINDINGS: Cardiac silhouette is enlarged. There is mild elevation of the left hemidiaphragm. There are increase d linear and interstitial densities at the left lung base. This could be related to atelectasis, but developing pneumonitis is a possibility. There are mild chronic lung changes seen bilaterally. Radiop aque density overlies the left upper lung zone, probably related to overlying artifact (button). Clin ical correlation is suggested. Vascular calcifications are again seen in a mildly ectatic thoracic ao rta. Osteopenia is present. IMPRESSION: 1. Mild chronic lung changes with slightly greater increased interstitial densities left lung base, p robably related to associated atelectasis as there is mild elevation of the left hemidiaphragm. Devel oping area of pneumonitis cannot be entirely excluded. 2. Cardiomegaly. POS: [facility]
[2017-10-22] MEDS: predniSONE 20 MG TAB PO SCH (08:14)
[2017-10-22] MEDS: Arformoterol 15 MCG/2 ML NEB NEB SCH ×2 (08:34→18:40)
--- NOTE | 2017-10-22 08:45 | PRG ---
DATE OF SERVICE: 10/22/2017 SUBJECTIVE: The patient is confused. She is tachypneic upon evaluation, she has oxygen on. There i s no family here at bedside. PHYSICAL EXAMINATION: GENERAL: She is confused. VITAL SIGNS: Her blood pressure is 160/50, pulse 90, respirations 26. She is afebrile. NECK: Supple with no increased JVP or carotid bruit. Carotid had good upstroke, no thyromegaly. COR: Regular rate and rhythm. CHEST: Clear to auscultation and percussion upper lobes. ABDOMEN: Soft, nontender with normoactive bowel sounds. No bruit or organomegaly. EXTREMITIES: Trace edema. She had palpable pedal pulses. SKIN: There is no evidence of ulcers, lesion or rash. NEUROLOGIC: She is confused. LABORATORY DATA: White blood cell count was 12.8 today. Her H&H is 11.2 and 39.0. Her platelet cou nt is 183. Her potassium is 5.7. Her BUN is 48, creatinine 1.15. ASSESSMENT: 1. Chronic obstructive pulmonary disease. 2. Respiratory failure. 3. Flu. 4. Anxiety. 5. Hypertension. 6. Hypokalemia. PLAN: I feel like the patient is worse today. I will reach out to the family to see if they would l mariana to talk about hospice. In the meantime, we will follow up with a chest x-ray, CBC, and CMP in th e morning. We will also ask Palliative Care to come see the patient in consultation.
--- NOTE | 2017-10-22 11:40 | RAD ---
RADIOGRAPH CHEST FRONTAL VIEW: Comparison: 10-22-17 Indication: Flu, bipap requirement, shortness of breath. FINDINGS: There are interstitial opacities bilaterally throughout each lung again demonstrated. Cardiomediastin al silhouette is stable. No obvious effusion or discrete pneumothorax. IMPRESSION: 1. Redemonstration of bilateral interstitial pulmonary parenchymal opacities. 2. Cardiac silhouette remains enlarged along with vascular congestion. Correlate for evidence of CHF. POS: [facility]
--- NOTE | 2017-10-22 15:32 | PRG ---
DATE OF SERVICE: 10/22/2017 SERVICE: Pulmonary Medicine. INTERVAL HISTORY: The patient is doing okay from a respiratory standpoint. The BiPAP is drying her out simply way too much. She is on a break from it this morning and is increasingly somnolent. She has been put back on it for 30 minutes at a time. We are going to continue to keep her off the BiPAP for as long as she tolerates. We are going to switch her over to a mechanical ventilator so that we can humidify the circuit and provide her with a little bit better respirations at night. Otherwise, there has been no interval change to her condition. She denies any chest pain or shortness of breat h at this time, though she is rather somnolent. OBJECTIVE: VITAL SIGNS: Afebrile with a T-max of 99.2, pulse 86, blood pressure 178/78, respirations 20, satura tion 94% on mechanical ventilation. HEENT: Normocephalic, atraumatic. Sclerae are white, conjunctivae pink. Oral mucosa is moist witho ut lesions. LUNGS: Decreased air entry. There is a prolonged expiratory phase and wheezing present. I do appre ciate crackles or rhonchi today. HEART: Normal rate, regular. ABDOMEN: Soft, nontender, nondistended. Bowel sounds are positive. MUSCULOSKELETAL: No cyanosis or clubbing. No pitting in the bilateral lower extremities. NEUROLOGIC: Grossly nonfocal. LABORATORY DATA: WBC 12.8, hemoglobin 11.2, platelets 183,000. BUN 48. Blood cultures x2 are unrem arkable. Influenza B is positive. IMAGING: Chest x-ray demonstrates mild chronic lung changes with slightly greater interstitial densi ties in the left base with likely atelectasis in that region. ASSESSMENT: 1. Acute on chronic hypoxic and hypercapnic respiratory failure. 2. Chronic obstructive pulmonary disease with acute exacerbation. 3. Influenza B. 4. Atrial fibrillation with rapid ventricular response, return in normal sinus rhythm with frequent premature atrial contractions. 5. Tobacco abuse. 6. Metabolic encephalopathy. PLAN: We will switch her over to mechanical ventilator. This is going to be provided to her at [facility] in 1-2 three times daily. The patient has an acute condition. I do believe that she can make it t hrough this illness and get back to her previous state of health. She does not want to be intubated. That being said, we can continue our supportive measures moving forward. Laboratory seems to be im proving ever so slightly. I will back off on our Lasix and continue gentle hydration over the next 2 4-48 hours. It is my understanding that palliative care discussions going to be had. If they would like to continue supportive measures, I think it is perfectly reasonable to provide tube feeds for a day or two until the patient wakes up a little bit better. She will remain in IMCU.
[2017-10-22] MEDS: Sodium Chloride 0.45% 1,000 ML IV SCH (16:57)
[2017-10-22] MEDS: Lorazepam 2 MG/ML VIAL SLOW IVP PRN (17:55)
[2017-10-23] MEDS: Lorazepam 2 MG/ML VIAL SLOW IVP PRN ×2 (02:48→16:13)
[2017-10-23] MEDS: Sodium Chloride 0.45% 1,000 ML IV SCH (04:55)
[2017-10-23 04:59] LABS: ALT (SGPT) 47 U/L (8-55); AST (SGOT) 36 U/L (5-34); Albumin 3.5 g/dL (3.4-4.8); Alkaline Phosphatase 52 U/L (40-150); BUN (Urea Nitrogen) 43 mg/dL (9.8-20.1); Bilirubin, Total 0.6 mg/dL (0.2-1.2); Calc. Creatinine Clearance 74 mL/min (70-130); Calcium 9.4 mg/dL (7.8-10.44); Estimated GFR-MDRD 55; Globulin 2.7 g/dL (2.4-3.5); Glucose 107 mg/dL (83-110); Protein, Total 6.2 g/dL (6.0-8.3)
[2017-10-23 05:10] LABS: Anion Gap 14 mmol/L (10-20); Carbon Dioxide 38 mmol/L (23-31); Chloride 105 mmol/L (98-107); Potassium 4.8 mmol/L (3.5-5.1); Sodium 152 mmol/L (136-145)
[2017-10-23 05:33] LABS: Band 5 % (5-11); Hemoglobin 10.8 g/dL (12.0-16.0); Lymphocytes 12 % (21-51); MDiff Complete? YES; Mean Corpuscular Hemoglobin 26.6 pg (27.0-31.0); Mean Corpuscular Volume 91.7 fl (81.0-99.0); Mean Platelet Volume 7.7 fL (7.4-10.4); Monocytes 6 % (0-10); Neutrophil 77 % (42-75); Platelet Count 177 thou/uL (130-400); Red Blood Cell (RBC) Count 4.07 mill/uL (4.20-5.40); White Blood Cell (WBC) Count 13.2 thou/uL (4.8-10.8)
[2017-10-23] MEDS: Budesonide 0.5 MG/2 ML NEB INH SCH ×2 (08:09→19:12)
[2017-10-23] MEDS: Arformoterol 15 MCG/2 ML NEB NEB SCH ×2 (08:17→22:42)
--- NOTE | 2017-10-23 08:34 | PRG ---
DATE OF SERVICE: 10/23/2017 SUBJECTIVE: The patient is on BiPAP. She seems to be more comfortable breathing today instead of ye sterday. I did speak Luke, a family member, yesterday morning and he stated that they had no idea th at she was in the hospital, but would go see her. I will let him know how critical she was and that we may need to look at hospice. He stated he would talk to family and go see her. The patient is st ill not able to swallow. The patient is on BiPAP. PHYSICAL EXAMINATION: VITAL SIGNS: Blood pressure is high this morning 180/70, pulse 90, respirations 20. She is afebrile . NECK: Supple, no JVP or carotid bruit. Carotids had good upstroke. No thyromegaly. CARDIOVASCULAR: Regular rate and rhythm. CHEST: Symmetrical. Upper lobe rhonchi. ABDOMEN: Soft, nontender, normal bowel sounds. No rebound or organomegaly. EXTREMITIES: No edema. She had palpable pedal pulses. SKIN: No evidence of ulcers, lesion or rash. NEUROLOGIC: She will open her eyes, but not follow commands. LABORATORY DATA: White blood cell 13.2, H&H 10.8 and 37.3, her platelet count is 177. Her sodium is 152. ASSESSMENT: 1. Chronic obstructive pulmonary disease exacerbation. 2. Respiratory failure. 3. Flu. 4. Anxiety disorder. 5. Hypertension. 6. Dysphagia. 7. Metabolic encephalopathy. PLAN: I will continue current medication regimen. She did have Palliative Care consult. We will co ntinue the same current regimen for now and hopefully she will turn around in the next few days.
[2017-10-23] MEDS ORDERED: cloNIDine 0.2mg/24 Hour PATCH TD SCH (10:00)
[2017-10-23] MEDS: predniSONE 20 MG TAB PO SCH (10:28)
[2017-10-23] MEDS: Dextrose 5% in Water 1,000 ML IV SCH ×2 (10:37→20:36)
--- NOTE | 2017-10-23 15:19 | PRG ---
DATE OF SERVICE: 10/23/2017 SERVICE: Pulmonary Medicine. INTERVAL HISTORY: The patient is doing poorly from a respiratory standpoint. Heart bustamante, things are going okay right now. She denies having any shortness of breath, but remains fairly somnolent. She denies any current fevers, chills , nausea or vomiting. There are no significant overnight events. She has been switched over to mechanical ventilation via noninvasive mask. She seems to be tolerating this just fine. OBJECTIVE: VITAL SIGNS: Currently afebrile with a T-max of 99.6, pulse 94, blood pressure 177/62, respirations 19, saturation 95% on 27% FiO2. GENERAL: The patient is somnolent. She is in no apparent distress. HEART: Normal rate, regular. ABDOMEN: Soft, nontender, nondistended. Bowel sounds are positive. MUSCULOSKELETAL: No cyanosis or clubbing. No pitting in the bilateral lower extremities. NEUROLOGIC: Grossly nonfocal. LABORATORY DATA: WBC 13.2, hemoglobin 10.8, platelets 177,000. Neutrophil count is 77% with 5% bands. Sodium 152. Basic metabolic profile, liver function studies are unremarkable. Blood cultures x2 are unremarkable. Influenza B is positive. ASSESSMENT: 1. Acute on chronic hypoxic and hypercapnic respiratory failure. 2. Chronic obstructive pulmonary disease exacerbation. 3. Influenza B. 4. Atrial fibrillation with rapid ventricular response, returned to sinus rhythm. 5. Tobacco abuse. 6. Metabolic encephalopathy. PLAN: We will continue her support on her home ventilator settings. These were adjusted ever so slightly to improve on her volumes. We do have an acute thing that we are treating is the influenza. Theoretically, we support her for the next 2-3 days, there is a possibility that the influenza will start to clear and she will return to her previous state of health. That being said, if she needs increasing support on her ventilator settings, there is a very strong likelihood that this noninvasive ventilation will not be able to hold her and we may need to transition over comfort care only. For the time being, we will continue providing her with supportive measures. Pulmonary Critical Care will continue to follow. CRITICAL CARE TIME: 30 minutes. ALIZE
[2017-10-23] MEDS ORDERED: Labetalol HCl 100 MG/20 ML VIAL SLOW IVP PRN (16:55)
[2017-10-23] MEDS ORDERED: cloNIDine 0.3mg/24 Hour PATCH TD SCH (17:00)
[2017-10-24] MEDS: Lorazepam 2 MG/ML VIAL SLOW IVP PRN ×2 (02:01→22:56)
[2017-10-24] MEDS: Dextrose 5% in Water 1,000 ML IV SCH ×3 (04:46→22:55)
[2017-10-24 05:02] LABS: ALT (SGPT) 66 U/L (8-55); AST (SGOT) 57 U/L (5-34); Albumin 3.1 g/dL (3.4-4.8); Alkaline Phosphatase 49 U/L (40-150); BUN (Urea Nitrogen) 32 mg/dL (9.8-20.1); Bilirubin, Total 0.8 mg/dL (0.2-1.2); Calc. Creatinine Clearance 75 mL/min (70-130); Calcium 8.7 mg/dL (7.8-10.44); Estimated GFR-MDRD 56; Globulin 2.4 g/dL (2.4-3.5); Glucose 187 mg/dL (83-110); Protein, Total 5.5 g/dL (6.0-8.3)
[2017-10-24 05:11] LABS: Anion Gap 10 mmol/L (10-20); Band 1 % (5-11); Chloride 99 mmol/L (98-107); Hemoglobin 10.3 g/dL (12.0-16.0); Lymphocytes 9 % (21-51); MDiff Complete? YES; Mean Corpuscular HGB CONC 29.2 g/dL (32.0-36.0); Mean Corpuscular Hemoglobin 27.4 pg (27.0-31.0); Mean Corpuscular Volume 93.9 fl (81.0-99.0); Mean Platelet Volume 7.9 fL (7.4-10.4); Monocytes 11 % (0-10); Neutrophil 79 % (42-75); Platelet Count 155 thou/uL (130-400); RBC Distribution Width 14.8 % (11.5-14.5); Red Blood Cell (RBC) Count 3.76 mill/uL (4.20-5.40); Sodium 147 mmol/L (136-145); Stomatocytes SLIGHT = 2-5 cells (100X) (0-1/hpf); White Blood Cell (WBC) Count 15.1 thou/uL (4.8-10.8)
[2017-10-24 05:19] LABS: Carbon Dioxide 42 mmol/L (23-31)
[2017-10-24] MEDS: Budesonide 0.5 MG/2 ML NEB INH SCH ×2 (07:51→18:37)
[2017-10-24] MEDS: Arformoterol 15 MCG/2 ML NEB NEB SCH ×2 (08:11→22:14)
--- NOTE | 2017-10-24 08:27 | PRG ---
DATE OF SERVICE: 10/24/2017 This is JOSE ARMANDO Ca-Mandi dictating for Larry Santo M.D. SUBJECTIVE: The patient is on BiPAP. She will not open her eyes. She will not follow commands. He r blood pressure was high during the night and I had to give her labetalol. Blood pressure is much b carlie this morning at 150/70. There is no family here at bedside. She is on IV fluids. PHYSICAL EXAMINATION: NECK: Upon evaluation, her neck is supple with no increased JVP or carotid bruit. Carotid had good upstroke, no thyromegaly. COR: Regular rate and rhythm. CHEST: Clear to auscultation and percussion in upper lobes with few wheezing bilateral. ABDOMEN: Soft and nontender with hypoactive bowel sounds. There is no bruit or organomegaly. EXTREMITIES: Trace edema. She had palpable pedal pulses. SKIN: There is no evidence of ulcer, lesion, or rash. NEUROLOGIC: She is lethargic. LABORATORY DATA: White blood cell is 15.1, hemoglobin and hematocrit is 10.3 and 34.3, platelet is 1 55, CO2 is 42. Sodium 147. ASSESSMENT: 1. Chronic obstructive pulmonary disease. 2. Respiratory failure. 3. Flu. 4. General anxiety disorder. 5. Hypertension. 6. Encephalopathy. PLAN: We will appreciate the help from Pulmonary. Unfortunately, this patient is critically ill and again they are waiting for more family members. I believe to make decisions. According to her lexi r of business attorney, the patient does not want any heroic measures done to sustain her life. She does also not want any PEG tube or Dobhoff feeding according to what I was told by the nurse taking care of he r. We will continue full effort now and hopefully she will make an improvement. If not, we will rev isit with the family regarding hospice care.
[2017-10-24] MEDS: predniSONE 20 MG TAB PO SCH (09:07)
--- NOTE | 2017-10-24 09:35 | RAD ---
RADIOGRAPH CHEST 1 VIEW: HISTORY: A 72-year-old female with cough, rule out pneumonia. FINDINGS: There is no air space density, pulmonary edema, or pneumothorax. The lateral costophrenic angles are sharp. IMPRESSION: No acute pulmonary findings. juan jose [] POS: [facility]
[2017-10-24] MEDS ORDERED: Furosemide 40 MG/4 ML VIAL SLOW IVP SCH (17:00)
--- NOTE | 2017-10-24 17:06 | PRG ---
DATE OF SERVICE: 10/24/2017 SERVICE: Pulmonary Medicine. INTERVAL HISTORY: The patient is doing about the same as yesterday. She denies any current chest pa in, shortness of breath, nausea or vomiting. She is very poorly responsive. With stimulation, she w ill wake up and answer some simple questions, but then drifts back to sleep within 3 seconds. Otherw ise, there is no interval change to her condition. PHYSICAL EXAMINATION: VITAL SIGNS: Afebrile, pulse 74, blood pressure 149/55, respirations 20, saturation 91% on room air. GENERAL: The patient is somnolent. HEENT: Normocephalic, atraumatic. Sclerae are white, conjunctivae pink. Oral and nasal mucosa is m oist without lesions. LUNGS: Decent air entry. There is a prolongation of the expiratory phase. Crackles and wheezing ar e both present. HEART: Normal rate, regular. ABDOMEN: Soft, nontender, nondistended. Bowel sounds are positive. MUSCULOSKELETAL: No cyanosis or clubbing. There is trace to 1+ pitting in the bilateral lower extre mities. NEUROLOGIC: Grossly nonfocal. LABORATORY DATA: WBC 15.1, hemoglobin 10.3, platelets 155,000. Neutrophil count is 79% with 1% band s. Bicarbonate 42 and gently up trending. Chloride 99, sodium 147 and gently down trending. Creati nine 0.98, which has improved as has her BUN. Glucose 187. Liver function studies are essentially s table, but had up trended slightly. Blood culture x2 are unremarkable. IMAGING: Chest x-ray demonstrates no acute pulmonary findings. She remains hyperexpanded. ASSESSMENT: 1. Acute on chronic hypoxic and hypercapnic respiratory failure. 2. Chronic obstructive pulmonary disease with acute exacerbation. 3. Influenza B. 4. Atrial fibrillation with rapid ventricular response, returned to sinus rhythm. 5. Tobacco abuse. 6. Metabolic encephalopathy, DISCUSSION AND PLAN: We will continue to support the patient. Over the next 2-3 days, if the patien t does not make any significant neurologic recovery, and remains completely dependent on noninvasive ventilation with a mechanical ventilator, it would be reasonable for us to transition over to comfort care at that time. That certainly would be based on family discussions however. The patient is cu rrently encephalopathic and is not able to participate in these conversations presently. She has pre viously demonstrated a strong aversion to intubation, PEG tube, feeding tubes, and being in any envir onment or care facility away from home. As such, I do think it would be in keeping with the patient' s wishes to transition over to comfort care, particularly if she is not able to be liberated from our support. In the meantime, we will continue nebulized medications, steroids and antibiotics.
[2017-10-25 05:04] LABS: #Eosinphils 0.2 thou/uL (0.0-0.7); #Lymphocytes 1.8 thou/uL (1.20-3.40); #Monocytes 1.1 thou/uL (0.11-0.59); #Neutrophils 11.2 thou/uL (1.40-6.50); %Basophils 0.1 % (0.0-1.0); %Eosinophils 1.4 % (0.0-10.0); %Lymphocytes 12.2 % (21.0-51.0); %Monocytes 7.8 % (0.0-10.0); %Neutrophils 78.5 % (42.0-75.0); Hemoglobin 11.1 g/dL (12.0-16.0); Mean Corpuscular HGB CONC 29.3 g/dL (32.0-36.0); Mean Corpuscular Hemoglobin 26.4 pg (27.0-31.0); Mean Corpuscular Volume 90.1 fl (81.0-99.0); Mean Platelet Volume 8.1 fL (7.4-10.4); Platelet Count 151 thou/uL (130-400); RBC Distribution Width 14.6 % (11.5-14.5); Red Blood Cell (RBC) Count 4.22 mill/uL (4.20-5.40); White Blood Cell (WBC) Count 14.3 thou/uL (4.8-10.8)
[2017-10-25 05:12] LABS: BUN (Urea Nitrogen) 21 mg/dL (9.8-20.1); Calc. Creatinine Clearance 87 mL/min (70-130); Calcium 8.7 mg/dL (7.8-10.44); Estimated GFR-MDRD 67; Glucose 136 mg/dL (83-110)
[2017-10-25 05:21] LABS: Anion Gap 13 mmol/L (10-20); Chloride 91 mmol/L (98-107); Potassium 3.3 mmol/L (3.5-5.1); Sodium 144 mmol/L (136-145)
[2017-10-25 05:26] LABS: Carbon Dioxide 43 mmol/L (23-31)
[2017-10-25] MEDS: Arformoterol 15 MCG/2 ML NEB NEB SCH ×2 (07:45→18:47)
[2017-10-25] MEDS: Budesonide 0.5 MG/2 ML NEB INH SCH ×2 (07:45→18:48)
--- NOTE | 2017-10-25 09:06 | PRG ---
DATE OF SERVICE: 10/25/2017 This is VIRY Ca dictating a progress note for Larry Santo M.D SUBJECTIVE: Patient is on oxygen. She is awake. She knows where she is at. She is much better sushila n she was yesterday at this time. The patient's family will be coming in from out of town, I believe today. PHYSICAL EXAMINATION: GENERAL: Upon evaluation, she is awake. VITAL SIGNS: Her blood pressure is 140/60, pulse 70, respirations 18, temperature 99.3. NECK: Supple with no increased JVP or carotid bruit. Carotid had good upstroke with no thyromegaly. COR: Regular rate and rhythm. CHEST: Upper lobe rhonchi. ABDOMEN: Soft and nontender with normoactive bowel sounds. No bruit. EXTREMITIES: Trace edema. She had palpable pedal pulses. SKIN: There is no evidence of ulcer, lesion, or rash. NEUROLOGIC: She is awake, alert, and oriented. ASSESSMENT: 1. Chronic obstructive pulmonary disease. 2. Respiratory failure. 3. Flu. 4. Anxiety disorder. 5. Hypertension. 6. Dysphagia. 7. Encephalopathy, improved. PLAN: 1. We will ask speech language pathology to reevaluate the patient tomorrow to assess her swallowing . We will also follow up with CBC and CMP in the morning. 2. We will wait to hear from the family when they come to see her based on her long-term care.
[2017-10-25] MEDS: predniSONE 20 MG TAB PO SCH (13:45)
--- NOTE | 2017-10-25 15:00 | PRG ---
DATE OF SERVICE: 10/25/2017 SERVICE: Pulmonary Medicine. INTERVAL HISTORY: The patient is doing really quite well from a respiratory standpoint. Today, she actually tolerated her BiPAP break. Unfortunately, she developed a little breakdown on the bridge of her nose. Otherwise, she denies any current chest pain or shortness of breath. There are no overni ght events. PHYSICAL EXAMINATION: VITAL SIGNS: Afebrile with T-max of 99.3, pulse 74, blood pressure 148/65, respirations 14, saturati on 97% on 3 liters nasal cannula. GENERAL: The patient is a little somnolent, but wakes up much better today without stimulation for 1 0 seconds. She will slowly drifts off back to sleep, but is not nearly asleep as yesterday. HEENT: Normocephalic, atraumatic. Sclerae are white, conjunctivae pink. Oral mucosa is moist witho ut lesions. LUNGS: Reduced air entry with a prolonged expiratory phase, wheezing or rhonchi are present. She ca nnot clear rhonchi with cough. No crackles. HEART: Normal rate, regular. ABDOMEN: Soft, nontender, nondistended. Bowel sounds are positive. MUSCULOSKELETAL: No cyanosis or clubbing. There is trace 1+ pitting in the bilateral lower extremit ies. NEUROLOGIC: Grossly nonfocal. LABORATORY DATA: WBC 14.3, hemoglobin 11.1, platelets 151,000. Bicarbonate 43, chloride 91, sodium 144, and potassium 3.3. BUN has improved to 21. Basic metabolic profile is otherwise unremarkable. Blood cultures x2 are unremarkable. ASSESSMENT: 1. Acute on chronic hypoxic and hypercapnic respiratory failure. 2. Chronic obstructive pulmonary disease with acute exacerbation. 3. Influenza B. 4. Atrial fibrillation with rapid ventricular response, returned in normal sinus rhythm. 5. Metabolic encephalopathy, improving. 6. Tobacco abuse. PLAN: We will continue supportive measures including antibiotics, nebulized medications and steroids . Potassium is 3.3 and will be replaced. We will repeat a level tomorrow morning. We will encourag e p.o. over the next 24 hours. She will need to continue her free water, but I will drop the rate to 75 mL per hour and change her fluids to half NS. Pulmonary or Critical Care will continue to follow along.
[2017-10-25] MEDS: Dextrose 5% in Water 1,000 ML IV SCH ×2 (15:28→15:56)
--- NOTE | 2017-10-25 15:33 | EKG ---
Test Reason : Blood Pressure : / mmHG Vent. Rate : 153 BPM Atrial Rate : 150 BPM P-R Int : 000 ms QRS Dur : 100 ms QT Int : 340 ms P-R-T Axes : 000 -72 100 degrees QTc Int : 542 ms Atrial fibrillation with rapid ventricular response with premature ventricular or aberrantly conducte d complexes Left axis deviation Nonspecific ST and T wave abnormality Abnormal ECG No previous ECGs available Confirmed by DR. Bijan MEDLEY ([id number]) on 10/25/2017 3:32:52 PM Referred By: VICKI Confirmed By:DR. Bijan MEDLEY
[2017-10-25] MEDS: Potassium Chloride 40 MEQ in Sodium Chloride 0.9% 250 ML 250 ML IVPB SCH ×2 (15:36→20:06)
[2017-10-25] MEDS: Lorazepam 2 MG/ML VIAL SLOW IVP PRN (20:06)
[2017-10-26 07:21] LABS: Hemoglobin 12.6 g/dL (12.0-16.0); Mean Corpuscular HGB CONC 28.7 g/dL (32.0-36.0); Mean Corpuscular Hemoglobin 26.2 pg (27.0-31.0); Mean Corpuscular Volume 91.5 fl (81.0-99.0); Platelet Count 145 thou/uL (130-400); RBC Distribution Width 14.5 % (11.5-14.5); Red Blood Cell (RBC) Count 4.81 mill/uL (4.20-5.40); White Blood Cell (WBC) Count 12.5 thou/uL (4.8-10.8)
[2017-10-26 07:22] LABS: #Monocytes 0.5 thou/uL (0.11-0.59); %Basophils 0.1 % (0.0-1.0); %Eosinophils 0.3 % (0.0-10.0); %Lymphocytes 7.6 % (21.0-51.0); %Monocytes 3.9 % (0.0-10.0)
[2017-10-26 07:39] LABS: Potassium 5.3 mmol/L (3.5-5.1)
[2017-10-26 07:41] LABS: ALT (SGPT) 75 U/L (8-55); AST (SGOT) 52 U/L (5-34); Albumin 3.2 g/dL (3.4-4.8); Alkaline Phosphatase 64 U/L (40-150); BUN (Urea Nitrogen) 20 mg/dL (9.8-20.1); Bilirubin, Total 0.7 mg/dL (0.2-1.2); Calc. Creatinine Clearance 92 mL/min (70-130); Calcium 8.8 mg/dL (7.8-10.44); Chloride 94 mmol/L (98-107); Estimated GFR-MDRD 73; Glucose 117 mg/dL (83-110); Magnesium 1.9 mg/dL (1.6-2.6); Phosphorus 2.4 mg/dL (2.3-4.7); Protein, Total 6.2 g/dL (6.0-8.3); Sodium 141 mmol/L (136-145)
[2017-10-26 07:44] LABS: Carbon Dioxide 35 mmol/L (23-31)
[2017-10-26] MEDS: Budesonide 0.5 MG/2 ML NEB INH SCH ×2 (08:03→18:19)
[2017-10-26] MEDS: Arformoterol 15 MCG/2 ML NEB NEB SCH ×2 (08:03→18:35)
[2017-10-26 08:55] LABS: MDiff Complete? YES; Polychromasia SLIGHT = 2-3 cells (100X) (0-2/hpf)
[2017-10-26] MEDS ORDERED: Magnesium 2 GM/NS 0.9% 100 ML 2 GM in Premix Bag 1 BAG IVPB SCH (11:00)
[2017-10-26] MEDS ORDERED: Furosemide 40 MG/4 ML VIAL SLOW IVP SCH (11:00)
--- NOTE | 2017-10-26 11:10 | PRG ---
DATE OF SERVICE: 10/26/2017 SERVICE: Pulmonary Medicine. INTERVAL HISTORY: The patient is doing fine from a cardiovascular and respiratory standpoint. She d enies any current fevers, chills, nausea, or vomiting. She has no complaints otherwise. She is melinda thing comfortably. She feels that she is returning to her usual state of health though she remains e xtraordinarily weak. Otherwise, there has been no change to her condition. PHYSICAL EXAMINATION: VITAL SIGNS: Afebrile, pulse 63, blood pressure 131/62, respirations 18, saturation 98% on 2 liters nasal cannula. GENERAL: The patient is awake and alert, in no apparent distress. LUNGS: Reduced air entry with a prolonged expiratory phase. Polyphonic wheeze. No crackles or rhon chi. HEART: Normal rate, regular. ABDOMEN: Soft, nontender, nondistended. Bowel sounds are positive. MUSCULOSKELETAL: No cyanosis or clubbing. No pitting in the bilateral lower extremities. LABORATORY DATA: WBC 12.5 and down trending, hemoglobin 12.6, platelets 145,000. Potassium 5.3, sod ium 141 and gently down trending. Basic metabolic profile and liver function studies are essentially unremarkable/improving. Bicarbonate has improved to 35. ASSESSMENT: 1. Acute on chronic hypoxic and hypercapnic respiratory failure. 2. Chronic obstructive pulmonary disease with acute exacerbation. 3. Influenza B. 4. Atrial fibrillation with rapid ventricular response, return in normal sinus rhythm. 5. Metabolic encephalopathy, resolving. 6. Tobacco abuse. DISCUSSION AND PLAN: We will continue her nebulized medications, antibiotics, and steroids. She ivett l work with physical therapy. We will consult case management for placement. She [facility] skilled [facility] before transitioning home, which is her ultimate goal. She will ne ed to remain in the IMCU. The patient cannot go to a group home facility without her home venti lator, which will need to be at that location with her. She will be using this at that location at n ight, schedule, and also on a p.r.n. basis.
[2017-10-26] MEDS: Dextrose 5% in Water 1,000 ML IV SCH (12:04)
[2017-10-26] MEDS: Lorazepam 2 MG/ML VIAL SLOW IVP PRN (19:56)
[2017-10-26 20:06] LABS: #Lymphocytes 0.7 thou/uL (1.20-3.40); #Monocytes 0.6 thou/uL (0.11-0.59); #Neutrophils 13.8 thou/uL (1.40-6.50); %Basophils 0.1 % (0.0-1.0); %Eosinophils 0.2 % (0.0-10.0); %Lymphocytes 4.5 % (21.0-51.0); %Neutrophils 91.1 % (42.0-75.0); Hemoglobin 11.8 g/dL (12.0-16.0); Mean Corpuscular Hemoglobin 26.1 pg (27.0-31.0); Mean Corpuscular Volume 89.9 fl (81.0-99.0); Mean Platelet Volume 8.4 fL (7.4-10.4); Platelet Count 171 thou/uL (130-400); RBC Distribution Width 14.6 % (11.5-14.5); Red Blood Cell (RBC) Count 4.52 mill/uL (4.20-5.40); White Blood Cell (WBC) Count 15.2 thou/uL (4.8-10.8)
[2017-10-26 20:50] LABS: BUN (Urea Nitrogen) 22 mg/dL (9.8-20.1); Calc. Creatinine Clearance 75 mL/min (70-130); Calcium 8.5 mg/dL (7.8-10.44); Estimated GFR-MDRD 58; Glucose 399 mg/dL (83-110)
[2017-10-26 20:59] LABS: Anion Gap 15 mmol/L (10-20); Carbon Dioxide 36 mmol/L (23-31); Chloride 86 mmol/L (98-107); Potassium 4.2 mmol/L (3.5-5.1); Sodium 133 mmol/L (136-145)
[2017-10-27] MEDS: Dextrose 5% in Water 1,000 ML IV SCH ×2 (01:03→22:12)
[2017-10-27 05:17] LABS: BUN (Urea Nitrogen) 22 mg/dL (9.8-20.1); Calc. Creatinine Clearance 81 mL/min (70-130); Estimated GFR-MDRD 63; Glucose 104 mg/dL (83-110)
[2017-10-27 05:22] LABS: #Eosinphils 0.1 thou/uL (0.0-0.7); #Lymphocytes 1.5 thou/uL (1.20-3.40); #Monocytes 1.3 thou/uL (0.11-0.59); #Neutrophils 15.8 thou/uL (1.40-6.50); %Basophils 0.1 % (0.0-1.0); %Eosinophils 0.3 % (0.0-10.0); %Lymphocytes 7.9 % (21.0-51.0); %Monocytes 7.1 % (0.0-10.0); %Neutrophils 84.7 % (42.0-75.0); Mean Corpuscular HGB CONC 29.3 g/dL (32.0-36.0); Mean Corpuscular Volume 88.9 fl (81.0-99.0); Mean Platelet Volume 8.4 fL (7.4-10.4); Platelet Count 192 thou/uL (130-400); RBC Distribution Width 14.6 % (11.5-14.5); Red Blood Cell (RBC) Count 4.63 mill/uL (4.20-5.40); White Blood Cell (WBC) Count 18.6 thou/uL (4.8-10.8)
[2017-10-27 05:28] LABS: Anion Gap 14 mmol/L (10-20); Carbon Dioxide 40 mmol/L (23-31); Chloride 90 mmol/L (98-107); Potassium 4.2 mmol/L (3.5-5.1); Sodium 140 mmol/L (136-145)
[2017-10-27] MEDS: Budesonide 0.5 MG/2 ML NEB INH SCH ×2 (06:37→18:24)
[2017-10-27] MEDS: Arformoterol 15 MCG/2 ML NEB NEB SCH ×2 (06:37→18:24)
--- NOTE | 2017-10-27 08:08 | PRG ---
DATE OF SERVICE: 10/27/2017 SUBJECTIVE: The patient is awake. She is alert. She is asking for a Boost. Her family apparently is going to have a meeting today with Palliative Care regarding inpatient hospice; however, the patie nt has made a big improvement from how she was last week. PHYSICAL EXAMINATION: VITAL SIGNS: Blood pressure 120/60, pulse 60, respiration rate 18, she is afebrile. NECK: Supple, no increased JVP or carotid bruit. Carotid had good upstroke, no thyromegaly. COR: Regular rate and rhythm. CHEST: Few scattered wheezing. ABDOMEN: Soft, nontender with normoactive bowel sounds. No bruit or organomegaly. EXTREMITIES: No edema or cyanosis. She had palpable pedal pulses. SKIN: There is no evidence of ulceration or rash. NEUROLOGIC: She is awake, alert, and oriented to person, place, and time. LABORATORY DATA: Her white blood cells 18.5. Her CBC is normal. Her BUN is 14, creatinine normal. ASSESSMENT: 1. Chronic obstructive pulmonary disease, improved. 2. Flu. 3. Atrial fibrillation converting to normal sinus rhythm. 4. Metabolic encephalopathy, improving. 5. Tobacco use. PLAN: We will make sure physical therapy is on the case. I believe they are and we will go ahead an d consult social media community manager to talk to the patient about maybe going to a [facility] facility.
--- NOTE | 2017-10-27 10:07 | PRG ---
DATE OF SERVICE: 10/27/2017 SERVICE: Pulmonary Medicine. INTERVAL HISTORY: The patient is doing great from cardiovascular and respiratory standpoint. She is breathing comfortably. She has no complaints of fevers, chills, nausea, vomiting or shortness of br eath. She is off of her BiPAP once again. She did not require last night. Otherwise, there has bee n no interval change to her condition. PHYSICAL EXAMINATION: VITAL SIGNS: Afebrile, pulse 63, blood pressure 128/62, respirations 20, saturation 94% on 2 liters nasal cannula. GENERAL: The patient is awake and alert. She is in no apparent distress. LUNGS: Decent air entry for her. There are some rhonchorous sounds. Prolonged expiratory phase is present, but not much wheezing. HEART: Normal rate, regular. ABDOMEN: Soft, nontender, nondistended. Bowel sounds are positive. MUSCULOSKELETAL: No cyanosis or clubbing. There is no pitting in the bilateral lower extremities to day. GENITOURINARY: No [place]. NEUROLOGIC: Grossly nonfocal. LABORATORY DATA: WBC 18.6, hemoglobin 12.0, platelets 192,000. Basic metabolic profile includes sod ium of 140, potassium 4.2, bicarbonate 40. Blood cultures x2 and influenza are unremarkable. ASSESSMENT: 1. Acute on chronic hypoxic and hypercapnic respiratory failure. 2. Chronic obstructive pulmonary disease with acute exacerbation. 3. Influenza B. 4. Atrial fibrillation with rapid ventricular response, returned to sinus rhythm. 5. Metabolic encephalopathy, resolved. 6. Tobacco abuse. 7. Contraction alkalosis with leukocytosis, likely secondary to the volume depletion. DISCUSSION AND PLAN: The patient is stable for transition out of the hospital. She can continue a s low taper off her steroids. Antibiotic course has been completed long ago. We will continue frequen t nebulized medications. She can resume her home medications on discharge from the hospital. Since she is woken up again, I will switch her back over to p.o. prednisone. Pulmonary will continue to fo llow while she remains in this location. Agree with lab holiday tomorrow.
[2017-10-27] MEDS: Lorazepam 2 MG/ML VIAL SLOW IVP PRN (22:11)
[2017-10-28 04:30] LABS: ALT (SGPT) 61 U/L (8-55); AST (SGOT) 31 U/L (5-34); Albumin 3.2 g/dL (3.4-4.8); Alkaline Phosphatase 82 U/L (40-150); BUN (Urea Nitrogen) 24 mg/dL (9.8-20.1); Bilirubin, Total 0.5 mg/dL (0.2-1.2); Calc. Creatinine Clearance 62 mL/min (70-130); Calcium 9.1 mg/dL (7.8-10.44); Estimated GFR-MDRD 47; Globulin 2.9 g/dL (2.4-3.5); Glucose 217 mg/dL (83-110); Protein, Total 6.1 g/dL (6.0-8.3)
[2017-10-28 04:39] LABS: Anion Gap 14 mmol/L (10-20); Chloride 89 mmol/L (98-107); Potassium 4.2 mmol/L (3.5-5.1); Sodium 141 mmol/L (136-145)
[2017-10-28 04:44] LABS: Carbon Dioxide 42 mmol/L (23-31)
[2017-10-28 04:49] LABS: Band 2 % (5-11); Hemoglobin 12.2 g/dL (12.0-16.0); Hypochromia SLIGHT = 6-15 cells (100X) (0-5/hpf); Lymphocytes 1 % (21-51); MDiff Complete? YES; Mean Corpuscular HGB CONC 29.4 g/dL (32.0-36.0); Mean Corpuscular Hemoglobin 26.2 pg (27.0-31.0); Mean Platelet Volume 8.3 fL (7.4-10.4); Monocytes 1 % (0-10); Neutrophil 96 % (42-75); Platelet Count 233 thou/uL (130-400); RBC Distribution Width 14.6 % (11.5-14.5); Red Blood Cell (RBC) Count 4.66 mill/uL (4.20-5.40)
[2017-10-28] MEDS: Arformoterol 15 MCG/2 ML NEB NEB SCH (06:46)
[2017-10-28] MEDS: Budesonide 0.5 MG/2 ML NEB INH SCH (06:46)
[2017-10-28] MEDS ORDERED: predniSONE 20 MG TAB PO SCH (08:00)
[2017-10-28] MEDS: Lorazepam 2 MG/ML VIAL SLOW IVP PRN (11:08)
[2017-10-28 12:59] VITALS: BMI 32.6
--- NOTE | 2017-10-28 14:23 | PRG ---
DATE OF SERVICE: 10/28/2017 SERVICE: Pulmonary Medicine INTERVAL HISTORY: The patient is doing outstanding from a respiratory standpoint. She is breathing comfortably. She has no specific complaints and looks comfortable. Otherwise, there has been no interval change to her condition. She has a worsening contraction alkalosis and I hope that is where the white blood cell count is coming from. PHYSICAL EXAMINATION: VITAL SIGNS: Afebrile, pulse 70, blood pressure 122/54, respirations 20, saturation 93% on 3 liters nasal cannula. GENERAL: The patient is awake and alert. She is in no apparent distress. LUNGS: Decreased air entry with a prolonged expiratory phase. Rhonchi are present. There is no wheezing or crackles. HEART: Normal rate, regular. ABDOMEN: Soft, nontender, nondistended. Bowel sounds are positive. MUSCULOSKELETAL: No cyanosis or clubbing. There is trace pitting in the bilateral lower extremities. LABORATORY: WBC 20.0, hemoglobin 12.2, platelets 233,000. Bicarbonate 42, chloride 89. Basic metabolic profile is otherwise unremarkable. AST and ALT are both down. ASSESSMENT: 1. Acute on chronic hypoxic and hypercapnic respiratory failure. 2. Chronic obstructive pulmonary disease with acute exacerbation. 3. Influenza B. 4. Atrial fibrillation with rapid ventricular response, returned to sinus rhythm. 5. Metabolic encephalopathy, resolved. 6. Tobacco abuse. 7. Contraction alkalosis with leukocytosis likely secondary to volume depletion. DISCUSSION AND PLAN: She is currently on a noninvasive ventilator in the home setting. This will have to be discontinued when she goes there as hospice is unlikely to be able to continue providing that service for her. If hospice is able to provide her with BiPAP, 04/02 would be sufficient for Ms. Snyder to keep her comfortable at the end of her life if she so desires. I will continue to follow as long as she remains in this location, but is my understanding, she will be discharged with hospice today. ALIZE
[2017-10-28 15:06] VITALS: BP 111/54; TEMP 98.7
--- NOTE | 2017-10-29 13:21 | DIS ---
CHIEF COMPLAINT ON ADMISSIO: A 4-day history of increasing dyspnea. Ms. Snyder was placed in the Critical Care Unit with acute on chronic respiratory failure secondary to chronic obstructive pulmonary disease exacerbating from the fluid. She was also septic from the flu, had hypertension and acute kidney injury, probably due to the sepsis. Felisha saw the patient initially until it was later known that she was also a patient of Dr. Santo where care was later transferred. Until that time Dr. Payton had seen the patient in consultation and agreed with the assessment and managed the mechanical ventilation necessary to keep her alive. Finally, by 10/18/2017 we were able to try to attempt to wean the BiPAP and minimize her Ativan, her antibiotics and Tamiflu were continued. By 10/19/2017 , she was doing poorly from a respiratory standpoint. She went into atrial fibrillation with RVR and was initiated on amiodarone drip. This did help control her rate somewhat, but she needs to stay continuously on BiPAP. We will try to take her off the BiPAP in favor her home CPAP later this day. If she can tolerate the breaks in the BiPAP. By 10/19/2017 she would arouse to pain, but was quite lethargic and her care did not progress the diet. By 2017, she would awake. She was confused. She was asking for something to drink. The patient had remained in ICU, but she was able to ask questions. By 10/21/2017 she was alert. She aroused easily. She still remained on BiPAP. She had severely diminished breath sounds bilaterally and she was becoming very deconditioned. There was consideration to move her to IMCU at this point, but she needed more supportive care capable of CCU. Once she was able to stop the amiodarone drip we could then move her to IMCU. By 10/22/2017 she was confused , tachypneic and somewhat worse. Family was contacted to consider hospice at this point and palliative care was also consulted concerning her care. By 10/23 she continued to poor from a respiratory standpoint, she would deny being short-winded, but was very somnolent and to continue to support her on ventilator settings. By 10/24/2017 she was very poorly responsive to stimulation. She will wake up and answer some questions and drifts back to sleep. Chest x-ray did not demonstrate any new findings. She remained acute on chronic hypoxic with hypercapnic respiratory failure, COPD, acute exacerbation, influenza B, atrial fibrillation with rapid ventricular response, but she was able to remain in sinus since amiodarone drip. By 10/26/2017 she was doing much better. Denied any fevers or chills. No more complaints. She was breathing much more comfortably. She felt like she was returning to her baseline, although she was very deconditioned. Physical Therapy was brought in at this point to help strengthen her. She will need a alf facility transfer before transitioning home. She will remain in IMCU until she leaves for the nursing facility. By 10/27/2017, doing great from a cardiovascular standpoint, breathing comfortably, no complaints. She is off of her BiPAP. The patient is able to transition out of the hospital at this point with a slow taper of steroids. The antibiotics have been completed long ago. She will bent on p.o. prednisone. Pulmonary will continue to follow her and she was finally able to be discharged home on 10/28/2017 and are going to go ahead and arrange hospice to help take care of her at home. She still has a white count of 20,000 at the time of discharge, she has been afebrile and back to what she considers her baseline. She is now a DNR. DISCHARGE DIAGNOSES: 1. Acute on chronic hypoxic and hypercapnic respiratory failure. 2. Chronic obstructive pulmonary disease with acute exacerbation. 3. Influenza B. 4. Atrial fibrillation with rapid ventricular response, now in sinus. 5. Metabolic encephalopathy, resolved. 6. Tobacco abuse. 7. Contraction alkalosis with leukocytosis secondary to volume depletion. The time needed to examine the chart, then examine the patient, answer all the patient's questions, prepare for discharge including prescriptions, reconciliation of all her medications and including dictation came to 45 minutes. Hospice will assist Dr. Santo in follow up. She will be on clonidine 0.3 transdermal applied weekly as well as prednisone 20 mg with breakfast. [facility]
--- NOTE | 2017-10-31 19:56 | EKG ---
Test Reason : Blood Pressure : / mmHG Vent. Rate : 113 BPM Atrial Rate : 110 BPM P-R Int : 194 ms QRS Dur : 112 ms QT Int : 326 ms P-R-T Axes : -07 -71 107 degrees QTc Int : 447 ms Undetermined rhythm Left anterior fascicular block Abnormal ECG Confirmed by ALPESH THURMAN ([id number]), news videotape editor COMPA HERNANDEZ ([id number]) on 10/31/2017 7:55:14 PM Referred By: Confirmed By:ALPESH THURMAN
== END 2017-10-28 15:32 | disposition hospice, home (50) | DRG 871 ==
LOC: ERS 11:43 → CCU 13:34 → IMCU/EMU 10-21 21:07
PROVIDERS: ADMIT Internal Medicine; ATTEND Internal Medicine
PROC: 5A09457 Assistance with Respiratory Ventilation, 24-96 Consecutive Hours, Continuous Positive Airway Pressure (ICD-10-PCS; principal; 2017-10-17)
PROC: 5A1935Z Respiratory Ventilation, Less than 24 Consecutive Hours (ICD-10-PCS; 2017-10-22)
DX: A41.9 Sepsis, unspecified organism (principal); J96.21 Acute and chronic respiratory failure with hypoxia; G93.41 Metabolic encephalopathy; N17.9 Acute kidney failure, unspecified; J96.22 Acute and chronic respiratory failure with hypercapnia; J44.1 Chronic obstructive pulmonary disease with (acute) exacerbation; J10.1 Influenza due to other identified influenza virus with other respiratory manifestations; I10 Essential (primary) hypertension; I25.10 Atherosclerotic heart disease of native coronary artery without angina pectoris; E03.9 Hypothyroidism, unspecified; Z66 Do not resuscitate; Z51.5 Encounter for palliative care; R65.20 Severe sepsis without septic shock; F17.210 Nicotine dependence, cigarettes, uncomplicated; K21.9 Gastro-esophageal reflux disease without esophagitis; M85.80 Other specified disorders of bone density and structure, unspecified site; I48.91 Unspecified atrial fibrillation; E87.6 Hypokalemia; Z88.0 Allergy status to penicillin; Z88.2 Allergy status to sulfonamides; Z88.8 Allergy status to other drugs, medicaments and biological substances; Z79.899 Other long term (current) drug therapy; Z95.1 Presence of aortocoronary bypass graft; Z96.652 Presence of left artificial knee joint
CPT/HCPCS: 36415; 36416; 71045; 80048; 80053; 82140; 82533; 82553; 82607; 82805; 83605; 83735; 83880; 84100; 84425; 84436; 84484; 85025; 87040; 87804; 93005; 93010; 94002; 94003; 94640; 94660; C9113; G8978-GP-CM; G8979-GP-CL; G8996-GN-CJ; G8997-GN-CJ; J0282; J1956; J2060; J2920; J3480; J7050; J7070; J7506; J7611; J7620; J7626